=== PATIENT | male | born 1985 | race Caucasian/White ===

== ENCOUNTER → 2016-12-14 | Outpatient (CLI) | payer OTHER ==
[2016-12-14 11:40] LABS: BASO % 0.2 % (0.0-1.0); EOS # 0.1 K/mm3 (0.0-0.50); LARGE UNSTAINED CELL # 0.2 K/mm3 (0.0-0.4); LARGE UNSTAINED CELL % 2.2 % (0.0-4.0); LYMPH # 2.3 K/mm3 (1.5-6.5); LYMPH % 27.6 % (24.0-44.0); MEAN CORPUSCULAR HEMOGLOBIN 32.2 pg (27.0-33.0); MEAN CORPUSCULAR HGB CONC 34.1 g/dl (32.0-36.5); MEAN CORPUSCULAR VOLUME 94.7 fl (80.0-96.0); MONO # 0.5 K/mm3 (0.0-0.8); NEUTROPHILS # 4.8 K/mm3 (1.8-7.7); NEUTROPHILS % 62.9 % (36.0-66.0); PLATELET COUNT, AUTOMATED 244 k/mm3 (150-450); WHITE BLOOD COUNT 7.6 K/mm3 (4.0-10.0)
[2016-12-14 12:20] LABS: ALBUMIN 4.1 GM/DL (3.2-5.2); ALBUMIN/GLOBULIN RATIO 1.11 (1.00-1.93); ALKALINE PHOSPHATASE 60 U/L (45-117); ALT/SGPT 33 U/L (12-78); ANION GAP 4 MEQ/L (8-16); AST/SGOT 16 U/L (15-37); BILIRUBIN,TOTAL 0.8 MG/DL (0.2-1.0); BLOOD UREA NITROGEN 15 MG/DL (7-18); CALCIUM LEVEL 9.4 MG/DL (8.5-10.1); CARBON DIOXIDE LEVEL 33 MEQ/L (21-32); CHLORIDE LEVEL 102 MEQ/L (98-107); CHOLESTEROL LEVEL 237 MG/DL (<200); CREATININE FOR GFR 0.92 MG/DL (0.70-1.30); GLOMERULAR FILTRATION RATE > 60.0 (>60); GLUCOSE, FASTING 103 MG/DL (70-105); POTASSIUM SERUM 4.6 MEQ/L (3.5-5.1); SODIUM LEVEL 139 MEQ/L (136-145); TOTAL PROTEIN 7.8 GM/DL (6.4-8.2); TRIGLYCERIDES LEVEL 132 MG/DL (<150)
== END ==
LOC: M LAB 10:55
PROVIDERS: ATTEND Nurse Practitioner Family
DX: Z00.00 Encounter for general adult medical examination without abnormal findings (principal); Z13.220 Encounter for screening for lipoid disorders

== ENCOUNTER 2017-07-17 13:51 | Emergency (ER) | payer OTHER ==
[~2017-07-17] VITALS: Ht 175.3 cm; Wt 65.9 kg
[2017-07-17] MEDS ORDERED: AZIT500T2 PO (13:57)
[2017-07-17] MEDS ORDERED: valACYclovir HCL 500 MG TAB PO ONE (15:30)
[2017-07-17] MEDS ORDERED: VALT1TAB PO (15:39)
[2017-07-17] MEDS ORDERED: AMOX500C PO (15:47)
[2017-07-17 16:07] VITALS: BP 144/82
[2017-07-22 00:06] LABS: HSV TYPE I IgM AB <1:10 titer (<1:10); HSV TYPE II IgM ABY 1:10 titer (<1:10)
== END 2017-07-17 16:08 | disposition home or self-care (01) ==
LOC: M ED 13:51
DX: Z20.2 Contact with and (suspected) exposure to infections with a predominantly sexual mode of transmission (principal); Z72.0 Tobacco use

== ENCOUNTER → 2017-08-10 | Outpatient (REF) | payer OTHER ==
[2017-08-12 12:08] LABS: HIV 1&2 SCREEN CENTAUR NEGATIVE (NEGATIVE)
== END ==
LOC: M SFHCPLAZ 15:22
DX: Z72.51 High risk heterosexual behavior (principal)
CPT/HCPCS: 87389

== ENCOUNTER 2019-06-01 19:36 | Emergency (ER) | payer OTHER ==
[~2019-06-01] VITALS: Ht 172.7 cm; Wt 72.7 kg
[~2019-06-01 19:36] MED LIST: AMOX500C PO; AZIT500T5 PO; VALT1TAB PO
[2019-06-01 20:27] LABS: BASO % 0.4 % (0.0-1.0); EOS # 0.1 10^3/uL (0.0-0.5); EOS % 0.8 % (0.0-3.0); HEMATOCRIT 46.6 % (42.0-52.0); HEMOGLOBIN 15.8 g/dl (13.5-17.5); LYMPH # 3.4 10^3/uL (1.5-5.0); LYMPH % 37.4 % (24.0-44.0); MEAN CORPUSCULAR HGB CONC 33.9 g/dl (32.0-36.5); MEAN CORPUSCULAR VOLUME 97.3 fl (80.0-96.0); MONO # 0.7 10^3/uL (0.0-0.8); NEUTROPHILS # 4.8 10^3/uL (1.5-8.5); NEUTROPHILS % 53.1 % (36.0-66.0); PLATELET COUNT, AUTOMATED 267 10^3/uL (150-450); RED BLOOD COUNT 4.79 10^6/uL (4.30-6.10)
[2019-06-01 20:53] LABS: ALBUMIN 4.4 GM/DL (3.2-5.2); ALT/SGPT 32 U/L (12-78); BILIRUBIN,DIRECT < 0.1 MG/DL (0.0-0.2); BILIRUBIN,TOTAL 0.3 MG/DL (0.2-1.0); TOTAL PROTEIN 8.4 GM/DL (6.4-8.2)
[2019-06-01 21:12] LABS: HEPATITIS B SURFACE ANTIGEN NEGATIVE (NEGATIVE)
[2019-06-01 21:15] VITALS: BP 139/81
[2019-06-01 21:41] LABS: HEPATITIS C VIRUS ABY INDEX 0.1 INDEX (<0.8)
[2019-06-04 10:49] LABS: HEPATITIS B CORE ANTIBODY IGM NEGATIVE (NEGATIVE)
[2019-06-04 10:50] LABS: HEPATITIS A ANTIBODY IGM NEGATIVE (NEGATIVE)
== END 2019-06-01 21:37 | disposition home or self-care (01) ==
LOC: M ED 19:36
DX: Z20.5 Contact with and (suspected) exposure to viral hepatitis (principal); F17.210 Nicotine dependence, cigarettes, uncomplicated

== ENCOUNTER 2020-01-09 16:18 | Inpatient (IN) | payer OTHER ==
[~2020-01-09] VITALS: Ht 170.2 cm; Wt 70.5 kg
[2020-01-09 18:03] LABS: HEMATOCRIT 46.5 % (42.0-52.0); HEMOGLOBIN 16.3 g/dl (13.5-17.5); MEAN CORPUSCULAR HEMOGLOBIN 33.1 pg (27.0-33.0); MEAN CORPUSCULAR HGB CONC 35.1 g/dl (32.0-36.5); MEAN CORPUSCULAR VOLUME 94.3 fl (80.0-96.0); PLATELET COUNT, AUTOMATED 285 10^3/uL (150-450); RED BLOOD COUNT 4.93 10^6/uL (4.30-6.10); WHITE BLOOD COUNT 12.9 10^3/uL (4.0-10.0)
[2020-01-09 18:35] LABS: AMPHETAMINES LEVEL URINE NEGATIVE (NEGATIVE); BARBITURATES URINE NEGATIVE (NEGATIVE); BENZODIAZEPINES URINE NEGATIVE (NEGATIVE); CANNABINOIDS URINE POSITIVE (NEGATIVE); COCAINE METABOLITE URINE NEGATIVE (NEGATIVE); METHADONE URINE NEGATIVE (NEGATIVE); OPIATES URINE NEGATIVE (NEGATIVE); PHENCYCLIDINE URINE NEGATIVE (NEGATIVE)
[2020-01-09 18:36] LABS: ACETAMINOPHEN LEVEL < 2.0 UG/ML (10.0-30.0); ALBUMIN 4.5 GM/DL (3.2-5.2); ALT/SGPT 31 U/L (12-78); BILIRUBIN,DIRECT 0.1 MG/DL (0.0-0.2); BILIRUBIN,TOTAL 0.5 MG/DL (0.2-1.0); BLOOD UREA NITROGEN 10 MG/DL (7-18); CALCIUM LEVEL 9.7 MG/DL (8.5-10.1); CARBON DIOXIDE LEVEL 29 MEQ/L (21-32); CHLORIDE LEVEL 103 MEQ/L (98-107); CREATININE FOR GFR 1.04 MG/DL (0.70-1.30); ETHYL ALCOHOL (ETHANOL) < 0.003 % (0.000-0.010); GLOMERULAR FILTRATION RATE > 60.0 (>60); GLUCOSE, FASTING 100 MG/DL (70-100); POTASSIUM SERUM 4.5 MEQ/L (3.5-5.1); SODIUM LEVEL 139 MEQ/L (136-145); TOTAL PROTEIN 8.5 GM/DL (6.4-8.2)
[2020-01-09] MEDS ORDERED: MAALOX 30 ML SUSP *UDC PO PRN (21:30)
[2020-01-09] MEDS ORDERED: ACETAMINOPHEN TAB 650MG DOSE (2X325MG) PO PRN (21:30)
[2020-01-09] MEDS ORDERED: OLANZapine ORAL DISINTEGRATING TAB 5MG PO PRN (21:30)
[2020-01-09] MEDS ORDERED: MOM 30ML SUSPENSION UDC PO PRN (21:30)
[2020-01-09] MEDS: PALIPERIDONE 3 MG ER TAB (INVEGA) PO SCH (22:15)
[2020-01-09] MEDS: NICOTINE 21MG/24HR 1 EA TRANSDERMAL TD SCH (22:15)
[2020-01-09 23:56] VITALS: BP 122/69
[2020-01-10 06:29] VITALS: BP 154/67
[2020-01-10] MEDS: NICOTINE 21MG/24HR 1 EA TRANSDERMAL TD SCH (09:00)
[2020-01-10] MEDS: PALIPERIDONE 3 MG ER TAB (INVEGA) PO SCH ×2 (09:00→21:13)
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
[2020-01-10] MEDS ORDERED: LORazepam 1 MG TAB PO ONE (20:30)
[2020-01-11] MEDS: NICOTINE 21MG/24HR 1 EA TRANSDERMAL TD SCH (09:00)
[2020-01-11] MEDS: PALIPERIDONE 3 MG ER TAB (INVEGA) PO SCH (09:34)
--- NOTE | 2020-01-11 10:06 | MHIPNPDOC ---
[facility] Progress Note Progress Note DOS 01/11/2020 Patient met with today with nurse present for telehealth evaluation due to COVID Crisis he is met with in his room at a safe distance with nurse wearing PPE Events Overnight: no significant events Group Attendance:: none Symptom changes (psych ROS): Affective: reports still feeling down about previous trauma Psychotic: still appears to be quite paranoid talking about "conspiracy theories" Anxiety: reports anxiety from reported trauma Staff Report: staff report patient is generally amenable, and has been taking medications Medical ROS: [Gen: -fevers, chills] [Cardio: -chest pain, palpations] [[place]: -SOB, cough] [GI: -N,V,D,C] [Neuro: -tremors, msk stiffness] [Derm: -rash] MSE: Vitals: Below General: fair hygiene Speech: rapid Thought processes: circumstantial Thought content: psychotic delusions Abstract reasoning, and computation: impaired Description of associations: imparied Description of abnormal or psychotic thoughts:Unclear, appears to have psychotic processes going on. Judgment: poor Insight: poor Orientation: Alert and orientated 3 Recent and remote memory: Intact Attention span and concentration: mildly impaired Fund of knowledge: unable to determine Mood: "great" Affect: appears euthymic from a distance Vital Signs Vital Signs Date Time Temp Pulse Resp B/P (MAP) Pulse Ox O2 Delivery O2 Flow Rate FiO2 01/10/20 06:29 99.6 78 18 154/67 (96) 98 Room Air Current Medications Current Medications Medications (Trade) Dose Ordered Sig/Bita Route PRN Reason Start Time Stop Time Status Last Admin Dose Admin Acetaminophen (Tylenol Tab) 650 mg Q6HP PRN PO HEADACHE or DISCOMFORT 01/09/20 21:30 Al Hydrox/Mg Hydrox/Simethicone (Mylanta) 30 ml Q4HP PRN PO HEARTBURN/INDIGESTION 01/09/20 21:30 Home Med (Med Rec Complete!) ASDIRECTED XX 01/09/20 19:15 01/09/20 19:07 DC Magnesium Hydroxide (Milk Of Magnesia) 30 ml DAILYPRN PRN PO CONSTIPATION 01/09/20 21:30 Mirtazapine (Remeron) 15 mg QHS PRN PO SLEEP 01/09/20 21:30 Nicotine (Nicoderm Cq 21mg) 1 patch DAILY TD 01/09/20 09:00 Olanzapine (ZyPREXA ZYDIS) 5 mg Q6HP PRN PO ANXIETY/AGITATION 01/09/20 21:30 01/11/20 04:41 Paliperidone (Invega) 3 mg BID PO 01/09/20 21:00 01/11/20 09:34 Allergies Coded Allergies: No Known Allergies (Unverified , 07/17/17) Problems (1) Bipolar affective disorder, current episode manic with psychotic symptoms Status: Acute Response to Treatment: Improving Discussed With: Nurse Problem Specific Plan: Monitor Clinically Problem Text: will discontinue paliperidone, as it's highly unlikely that insurance companies recover this as he doesn't appear to have tried any other medications. Will attempt to use Zyprexa 5 mg BID has evidence supports its use in suppressing psychotic phenomenon effectively in the short term. Plan / VTE VTE Prophylaxis Ordered?: No Plan Diet: Continue Current Activity: Continue Current Anticipated Discharge: Home (no discharge date as of yet) JOHN RANDOLPH DO Jan 11, 2020 10:06
[2020-01-11] MEDS: OLANZapine ORAL DISINTEGRATING TAB 5MG PO SCH (21:36)
[2020-01-11] MEDS: MIRTAZAPINE 15 MG TAB PO PRN (21:36)
[2020-01-12] MEDS: OLANZapine ORAL DISINTEGRATING TAB 5MG PO SCH ×2 (08:29→21:56)
[2020-01-12] MEDS: NICOTINE 21MG/24HR 1 EA TRANSDERMAL TD SCH (08:33)
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
[2020-01-12 16:04] VITALS: BP 127/76
[2020-01-12] MEDS: MIRTAZAPINE 15 MG TAB PO PRN (21:59)
[2020-01-13] MEDS: OLANZapine ORAL DISINTEGRATING TAB 5MG PO SCH ×2 (08:24→21:25)
[2020-01-13] MEDS: NICOTINE 21MG/24HR 1 EA TRANSDERMAL TD SCH (08:33)
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
[2020-01-13] MEDS: LITHIUM CARBONATE 150 MG CAP PO SCH ×2 (12:07→21:25)
[2020-01-13 15:56] VITALS: BP 153/83
[2020-01-13] MEDS: MIRTAZAPINE 15 MG TAB PO PRN (21:25)
[2020-01-14] MEDS: NICOTINE 21MG/24HR 1 EA TRANSDERMAL TD SCH (09:00)
[2020-01-14] MEDS: OLANZapine ORAL DISINTEGRATING TAB 5MG PO SCH (09:10)
[2020-01-14] MEDS: LITHIUM CARBONATE 150 MG CAP PO SCH (09:10)
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
[2020-01-14] MEDS ORDERED: LITH150C PO (10:18)
[2020-01-14] MEDS ORDERED: NICO21PAT TD (10:18)
[2020-01-14] MEDS ORDERED: OLAN5TAB PO (10:18)
== END 2020-01-14 13:45 | disposition home or self-care (01) | DRG 753 ==
LOC: M ED 16:18 → M ED INP 21:25 → M PSY 23:55
PROVIDERS: ADMIT Psychiatry & Neurology Psychiatry; ATTEND Psychiatry & Neurology Addiction Medicine
DX: F31.2 Bipolar disorder, current episode manic severe with psychotic features (principal); F10.10 Alcohol abuse, uncomplicated; Z20.89 Contact with and (suspected) exposure to other communicable diseases; F17.200 Nicotine dependence, unspecified, uncomplicated; F12.90 Cannabis use, unspecified, uncomplicated

== ENCOUNTER → 2020-01-21 | Outpatient (CLI) | payer OTHER ==
[~2020-01-21] MED LIST changes: +LITH150C PO; +NICO21PAT TD; +OLAN5TAB PO
== END ==
LOC: M OUTALCOH 08:04
PROVIDERS: ATTEND Psychiatry & Neurology Addiction Medicine
DX: Z13.39 Encounter for screening examination for other mental health and behavioral disorders (principal); F10.20 Alcohol dependence, uncomplicated

== ENCOUNTER 2020-01-23 04:18 | Inpatient (IN) | payer OTHER ==
[~2020-01-23] VITALS: Ht 170.2 cm; Wt 69.0 kg
[2020-01-23] MEDS ORDERED: MAALOX 30 ML SUSP *UDC PO PRN (06:45)
[2020-01-23] MEDS ORDERED: OLANZapine ORAL DISINTEGRATING TAB 5MG PO PRN (06:45)
[2020-01-23] MEDS ORDERED: ACETAMINOPHEN TAB 650MG DOSE (2X325MG) PO PRN (06:45)
[2020-01-23] MEDS ORDERED: MOM 30ML SUSPENSION UDC PO PRN (06:45)
[2020-01-23 11:15] VITALS: BP 142/90
[2020-01-23] MEDS: LITHIUM CARBONATE 150 MG CAP PO SCH ×2 (11:48→20:13)
--- NOTE | 2020-01-23 13:16 | HPEPDOC ---
[facility] Medical History & Physical Date of Admission Jan 23, 2020 Date of Service: Jan 23, 2020 History and Physical Chief complaint: Suicidal ideation History of present illness: This is the 34-year-old male with no significant medical history, comes to the psychiatric unit and we have been consulted for medical reasons. Mother had informed that the patient was having suicidal ideation. States that he has a lot of stressors and his family is trying to harm him and that is the reason he ran away.. His thoughts are tangential and he is not been able to make a good eye contact. He currently has been admitted to the psychiatric facility and the management will be as per them. He denies any shortness of breath, any chest pain, any headache. He states that he does not have any intentions of hurting himself or anybody else at this point of time. Family history. Hypertension. Social history.Denies any drug abuse. Denies any recreational drug use. Past medical history none Past surgical history none as per patient Review of systems. Pertinent positive findings as per HPI and is negative PHYSICAL EXAMINATION: General: The patient is awake, alert, oriented x3, sitting up in the bed in no apparent distress. Head and Neck Exam: Extraocular muscles intact. Pupils equally round and reactive to light. Mucous membranes are moist. Neck is supple. There is no jugular venous distention (JVD). Cardiovascular: S1 and S2, regular rate. No real edema Respiratory: Clear auscultation Abdomen: Soft. Positive bowel sounds. Nontender. No organomegaly. Genitourinary: Deferred Musculoskeletal: no cyanosis was noted. Central Nervous System (GRADUATE ADVISOR): No focal deficit. Power is 5/5 in all extremities. Radiology reviewed Assessment and plan This is a 34-year-old male was been admitted to the psychiatric facility for suicidal ideation. And we have been consulted for medical management. 1. Suicide ideation. Management is per psychiatry. 2. Paranoia: Management as per psychiatric Diet as per psychiatric Thank so much for consulting us on this patient We will sign off. Please reconsult if needed Vital Signs Vital Signs Date Time Temp Pulse Resp B/P (MAP) Pulse Ox O2 Delivery O2 Flow Rate FiO2 01/23/20 08:48 98.4 68 18 140/76 (97) 100 Room Air Laboratory Data Microbiology Microbiology 01/23/20 Respiratory Virus Panel (PCR) ([place]) - Final, Complete Home Medications No Active Prescriptions or Reported Meds Allergies Coded Allergies: No Known Allergies (Unverified , 07/17/17) A-FIB/CHADSVASC A-FIB History Current/History of A-Fib/PAF?: No Current PO Anticoag Therapy: No RENÉE PERRY MD Jan 23, 2020 13:16
[2020-01-23 20:00] VITALS: BP 130/72
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
[2020-01-24 06:14] VITALS: BP 141/79
[2020-01-24] MEDS: LITHIUM CARBONATE 150 MG CAP PO SCH (09:18)
--- NOTE | 2020-01-24 09:24 | MHIPNPDOC ---
[facility] Progress Note Progress Note DATE OF SERVICE: 01/24/20 Skinny Heard presents today for concerns regarding his thoughts from yesterday. He is doing better today. He was having some paranoid thoughts yesterday. His current medications are causing blood in stool . He blames his diet and lack of nutrients in his diet for the blood in stool as well. Objective Appearance: Well nourished. Fair hygiene. Well groomed. Mood: More cooperative today. Less aggression. Euthymic. Generally good. Appropriately reactive. Thought Form: Linear and goal directed. Thought Content: No evidence of aggressive or homicidal ideation. Associations do appear somewhat loosened. No evidence of suicidal ideation. Insight: Judgment insight is improving but still limited. Assessment F31.63 Bipolar disorder, current episode mixed, severe, without psychotic features Plan The patient is less agitated today. However, continues to report problems with blood in stool. Will do an occult blood test to make sure theres no major issues. The patient reports some difficulty with paranoia, although he continually says hes fine. Nursing staff reports that he is quite distorted. He will start abilify 5 mg nightly. Tonight he will discontinue [place] and Zyprexa. Vital Signs Vital Signs Date Time Temp Pulse Resp B/P (MAP) Pulse Ox O2 Delivery O2 Flow Rate FiO2 01/24/20 06:14 97.8 71 12 141/79 (99) Room Air 01/23/20 11:15 99 Current Medications Current Medications Medications (Trade) Dose Ordered Sig/Bita Route PRN Reason Start Time Stop Time Status Last Admin Dose Admin Acetaminophen (Tylenol Tab) 650 mg Q6HP PRN PO HEADACHE or DISCOMFORT 01/23/20 06:45 Al Hydrox/Mg Hydrox/Simethicone (Mylanta) 30 ml Q4HP PRN PO HEARTBURN/INDIGESTION 01/23/20 06:45 Home Med (Med Rec Complete!) ASDIRECTED XX 01/23/20 06:45 01/23/20 06:46 DC [place] Carbonate ([place] Carbonate) 150 mg BID PO 01/23/20 09:00 01/24/20 09:18 Magnesium Hydroxide (Milk Of Magnesia) 30 ml DAILYPRN PRN PO CONSTIPATION 01/23/20 06:45 Olanzapine (ZyPREXA ZYDIS) 5 mg Q4HP PRN PO anxiety/agitation 01/23/20 06:45 Trazodone HCl (Desyrel) 50 mg QHSP PRN PO INSOMNIA 01/23/20 06:45 Allergies Coded Allergies: No Known Allergies (Unverified , 07/17/17) JOHN RANDOLPH DO Jan 24, 2020 09:24
[2020-01-24 17:19] VITALS: BP 150/88
[2020-01-25 06:53] VITALS: BP 139/93
--- NOTE | 2020-01-25 10:02 | MHIPNPDOC ---
[facility] Progress Note Progress Note The patient was seen on 01/25/20. HPI: Patient audio poor sometimes throughout the recording. Félix presents today for a follow up. He notes that he is feeling a lot better on the Abilify. He notes having side effects from the Abilify now and then. He notes that his mental state, sleep and body have gotten better. Patient denies having any suicidal or homicidal thoughts. Objective Appearance: Fair hygiene. Well nourished. Behavior: Cooperative with good eye contact. Pleasant. Generally doesnt have much engagement other than bizarre thoughts that are irrate. Thought Form: Nonlinear. Tangential. Thought Content: No evidence of aggressive or homicidal ideation. No evidence of suicidal ideation. No evidence of delusions. No thoughts of self harm. Perception: Psychotic. Assessment Bipolar disorder type 1, most recent episode, mixed severe Plan He does appear to be making some very mild progress. However, he will likely need to be on an injectable as he has fairly severe bipolar disorder. He is still quite distorted and generally unable to engage with any meaningful di scussion. Increase dose of Abilify to 10mg nightly Vital Signs Vital Signs Date Time Temp Pulse Resp B/P (MAP) Pulse Ox O2 Delivery O2 Flow Rate FiO2 01/25/20 06:53 98.5 87 16 139/93 (108) 99 Room Air Current Medications Current Medications Medications (Trade) Dose Ordered Sig/Bita Route PRN Reason Start Time Stop Time Status Last Admin Dose Admin Acetaminophen (Tylenol Tab) 650 mg Q6HP PRN PO HEADACHE or DISCOMFORT 01/23/20 06:45 Al Hydrox/Mg Hydrox/Simethicone (Mylanta) 30 ml Q4HP PRN PO HEARTBURN/INDIGESTION 01/23/20 06:45 Aripiprazole (AbiLIFY) 5 mg QHS PO 01/24/20 21:00 01/24/20 21:46 Home Med (Med Rec Complete!) ASDIRECTED XX 01/23/20 06:45 01/23/20 06:46 DC [place] Carbonate ([place] Carbonate) 150 mg BID PO 01/23/20 09:00 01/24/20 10:13 DC 01/24/20 09:18 Magnesium Hydroxide (Milk Of Magnesia) 30 ml DAILYPRN PRN PO CONSTIPATION 01/23/20 06:45 Olanzapine (ZyPREXA ZYDIS) 5 mg Q4HP PRN PO anxiety/agitation 01/23/20 06:45 Trazodone HCl (Desyrel) 50 mg QHSP PRN PO INSOMNIA 01/23/20 06:45 Allergies Coded Allergies: No Known Allergies (Unverified , 07/17/17) JOHN RANDOLPH DO Jan 25, 2020 10:02
[2020-01-25 15:43] VITALS: BP 154/86
[2020-01-25] MEDS: ARIPiprazole 10 MG TAB PO SCH (20:54)
[2020-01-26 06:25] VITALS: BP 145/78
[2020-01-26 15:31] VITALS: BP 135/78
[2020-01-26] MEDS: ARIPiprazole 10 MG TAB PO SCH (21:58)
[2020-01-27 06:35] VITALS: BP 142/91
--- NOTE | 2020-01-27 09:24 | MHIPN ---
DATE: 01/26/2020 This patient is seen via telepsychiatry due to the current Coronavirus crisis. The patient today states, "I'm doing better, I like the medication." He is referring to Helio that he is being treated with. It is difficult for him to elaborate in what way he is feeling better and he did say that before he was having a lot of anxiety and that his anxiety is better now. MENTAL STATUS EXAMINATION: This patient is alert and oriented times three. Eye contact is fair. Psychomotor activity is decreased. He appears guarded and very vague. There is no formal thought disorder. He says his mood is "better." His affect is flat. I suspect that he is still having significant delusions but he is guarded about that at this point. He is denying any suicidal or homicidal ideations today. Concentration is fair. Memory is grossly intact. Insight and judgment poor. DIAGNOSIS: Bipolar disorder mixed, episode severe, with possible psychotic symptoms. TREATMENT PLAN: At this point, we will continue him on the current medications. We will adjust the medications as indicated and continue to evaluate him for stabilization of his mood and thinking and resolution of suicidal thoughts.
[2020-01-27 15:56] VITALS: BP 120/73
[2020-01-27] MEDS: ARIPiprazole 10 MG TAB PO SCH (23:05)
[2020-01-28 06:44] VITALS: BP 130/80
--- NOTE | 2020-01-28 11:13 | MHIPN ---
DATE OF SERVICE: 01/27/2020 The patient is seen via telepsychiatry due to the current Coronavirus crisis. The patient today states "I'm feeling better and better every day and every minute that goes by." He continues to feel "The medications are balancing me." MENTAL STATUS EXAMINATION: This patient is alert and oriented times three. Eye contact is good. He does have some pressured speech and some mild flight of ideas. He says his mood is good. Affect is appropriate to mood. He is not psychotic or suicidal. I am not eliciting any psychotic symptoms today. Psychomotor activity is decreased. He appears guarded and very vague. There is no formal thought disorder. He says his mood is "better." His affect is flat. I suspect that he is still having significant delusions but he is guarded about that at this point. He is denying any suicidal or homicidal ideations today. Concentration is fair. Memory is grossly intact. Insight and judgment fair. DIAGNOSIS: Bipolar disorder, mixed episode, severe. TREATMENT PLAN: Will continue to monitor the patient for continued elevation and stabilization of his mood and continue resolution of suicidal ideation. NIKIA
[2020-01-28 16:42] VITALS: BP 140/86
[2020-01-28] MEDS: traZODone 50 MG TAB PO PRN (21:25)
[2020-01-28] MEDS: ARIPiprazole 15 MG TAB (AbiLIFY) PO SCH (21:25)
--- NOTE | 2020-01-28 22:56 | MHIPN ---
DATE: 01/28/2020 The patient is seen via telepsychiatry due to the current coronavirus crisis. The patient's fiance called the unit this morning to say that the patient is still delusional, that he told her that someone is trying to kill him on the unit, also that there is a nurse in the unit that looks just like his fiance's mom and that the person that the fiadelita thinks is her mother is really a surrogate. He told her he would go talk to the police and tell them that he has found her real mom. The patient today tells me that he was doing "great." He tells me that he is not depressed, that the medicine is working good, and when I discussed with him the above, he became very upset and angry, denying everything. MENTAL STATUS EXAM: This patient is alert and oriented times three. He is verbally spontaneous. He is angry. There is no formal thought disorder. His mood is great. Affect is flat. He remains acutely delusional with poor insight and judgment. Concentration is fair. Memory intact. DIAGNOSES: Bipolar disorder, mixed episode, severe, with psychotic symptoms. TREATMENT PLAN: At this point, the patient remains quite delusional with no insight. He is quite angry. I will increase his Abilify to 15 mg nightly. MTDD
[2020-01-29 06:22] VITALS: BP 154/88
[2020-01-29 16:37] VITALS: BP 134/81
[2020-01-29] MEDS: traZODone 50 MG TAB PO PRN (20:33)
[2020-01-29] MEDS: ARIPiprazole 15 MG TAB (AbiLIFY) PO SCH (20:33)
[2020-01-30 06:31] VITALS: BP 134/73
--- NOTE | 2020-01-30 09:24 | MHIPNPDOC ---
[facility] Progress Note Progress Note DATE OF SERVICE: 01/30/20 HPI: Félix presents today for concerns regarding his mental health. He has noticed that his mental state is much better on the medication. He states that he feels balanced and great. MEDICATIONS: He has increased his Abilify up to 15 mg . EXERCISE: For discharge, he has been planning on continuing his yoga. Objective Appearance: Well groomed. Well nourished. Behavior: Quite psychotic. Affect: Generally Eleted. Speech: Not pressured. Cognition: Grossly intact. Thought Form: Still distorted with delusional thinking. Thought process is tangential. Perception: Associations are loosened. Judgement: Poor. Insight: Poor. Assessment F31.64 Bipolar disorder, current episode mixed, severe, with psychotic features Plan The patient is a 34-year-old man with severe bipolar disorder. Presents for continued medication management. He will continue abilify 15 mg nightly, adding Depakote 250 mg BID for further mood stability, as he will likely need more medications in order to stabilize him. The potential for correction treatment needs to be explored as he is not making significant progress at this time, with unrealistic plans. Vital Signs Vital Signs Date Time Temp Pulse Resp B/P (MAP) Pulse Ox O2 Delivery O2 Flow Rate FiO2 01/30/20 06:31 97.5 87 18 134/73 (93) Room Air 01/28/20 06:44 99 Current Medications Current Medications Medications (Trade) Dose Ordered Sig/Bita Route PRN Reason Start Time Stop Time Status Last Admin Dose Admin Acetaminophen (Tylenol Tab) 650 mg Q6HP PRN PO HEADACHE or DISCOMFORT 01/23/20 06:45 Al Hydrox/Mg Hydrox/Simethicone (Mylanta) 30 ml Q4HP PRN PO HEARTBURN/INDIGESTION 01/23/20 06:45 Aripiprazole (AbiLIFY) 5 mg QHS PO 01/24/20 21:00 01/25/20 10:09 DC 01/24/20 21:46 Aripiprazole (AbiLIFY) 10 mg QHS PO 01/25/20 21:00 01/28/20 14:53 DC 01/27/20 23:05 Aripiprazole (AbiLIFY) 15 mg QHS PO 01/28/20 21:00 01/29/20 20:33 Home Med (Med Rec Complete!) ASDIRECTED XX 01/23/20 06:45 01/23/20 06:46 DC [place] Carbonate ([place] Carbonate) 150 mg BID PO 01/23/20 09:00 01/24/20 10:13 DC 01/24/20 09:18 Magnesium Hydroxide (Milk Of Magnesia) 30 ml DAILYPRN PRN PO CONSTIPATION 01/23/20 06:45 Olanzapine (ZyPREXA ZYDIS) 5 mg Q4HP PRN PO anxiety/agitation 01/23/20 06:45 Trazodone HCl (Desyrel) 50 mg QHSP PRN PO INSOMNIA 01/23/20 06:45 01/29/20 20:33 Allergies Coded Allergies: No Known Allergies (Unverified , 07/17/17) JOHN RANDOLPH DO Jan 30, 2020 09:24
[2020-01-30] MEDS: DIVALPROEX 250 MG TAB PO SCH ×2 (10:42→20:09)
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
[2020-01-30 16:30] VITALS: BP 138/72
[2020-01-30] MEDS: ARIPiprazole 15 MG TAB (AbiLIFY) PO SCH (20:08)
[2020-01-31 06:23] VITALS: BP 125/75
--- NOTE | 2020-01-31 09:48 | MHIPNPDOC ---
[facility] Progress Note Progress Note DATE OF SERVICE: 01/31/20 Félix presents today for a follow up. He noticed slight shakiness in his legs when he was doing yoga, which may be caused by medication side effects. He denies any suicidal thoughts, homicidal thoughts, and hallucinations. He became very defensive when asked about these thoughts.staff still report patient is quite distorted, aggressive and paranoid MEDICATIONS: Currently taking Depakote and notes that all prescribed medications have been effective. Objective Appearance: Well groomed. Well nourished. Behavior: Paranoid. Aggressive. Affect: Angry. Irritable. Speech: Pressured. Thought Content: No evidence of aggressive or homicidal ideation. No evidence of delusions. No evidence of suicidal ideation. No thoughts of self harm. Perception: Psychotic perceptions are prevalent. Assessment F31.64 Bipolar disorder, current episode mixed, severe, with psychotic features Plan Continue Depakote and Abilify at this time; will likely need to increase over the weekend and further treatment. He does report he would be fine going to court, however, he is current condition will likely lead to further retention. Vital Signs Vital Signs Date Time Temp Pulse Resp B/P (MAP) Pulse Ox O2 Delivery O2 Flow Rate FiO2 01/31/20 06:23 96.9 94 12 125/75 (92) Room Air 01/28/20 06:44 99 Current Medications Current Medications Medications (Trade) Dose Ordered Sig/Bita Route PRN Reason Start Time Stop Time Status Last Admin Dose Admin Acetaminophen (Tylenol Tab) 650 mg Q6HP PRN PO HEADACHE or DISCOMFORT 01/23/20 06:45 Al Hydrox/Mg Hydrox/Simethicone (Mylanta) 30 ml Q4HP PRN PO HEARTBURN/INDIGESTION 01/23/20 06:45 Aripiprazole (AbiLIFY) 5 mg QHS PO 01/24/20 21:00 01/25/20 10:09 DC 01/24/20 21:46 Aripiprazole (AbiLIFY) 10 mg QHS PO 01/25/20 21:00 01/28/20 14:53 DC 01/27/20 23:05 Aripiprazole (AbiLIFY) 15 mg QHS PO 01/28/20 21:00 01/30/20 20:08 Divalproex Sodium (Depakote) 250 mg BID PO 01/30/20 09:00 6/24/20 20:09 Home Med (Med Rec Complete!) ASDIRECTED XX 01/23/20 06:45 01/23/20 06:46 DC [place] Carbonate ([place] Carbonate) 150 mg BID PO 01/23/20 09:00 01/24/20 10:13 DC 01/24/20 09:18 Magnesium Hydroxide (Milk Of Magnesia) 30 ml DAILYPRN PRN PO CONSTIPATION 01/23/20 06:45 Olanzapine (ZyPREXA ZYDIS) 5 mg Q4HP PRN PO anxiety/agitation 01/23/20 06:45 Trazodone HCl (Desyrel) 50 mg QHSP PRN PO INSOMNIA 01/23/20 06:45 01/29/20 20:33 Allergies Coded Allergies: No Known Allergies (Unverified , 07/17/17) JOHN RANDOLPH DO Jan 31, 2020 09:48
[2020-01-31] MEDS: DIVALPROEX 250 MG TAB PO SCH (10:14)
[2020-01-31 17:35] VITALS: BP 138/82
[2020-01-31] MEDS: ARIPiprazole 15 MG TAB (AbiLIFY) PO SCH (21:14)
[2020-01-31] MEDS: traZODone 50 MG TAB PO PRN (21:14)
[2020-01-31] MEDS: DIVALPROEX 500 MG TAB PO SCH (21:16)
[2020-02-01 06:48] VITALS: BP 140/73
[2020-02-01] MEDS: DIVALPROEX 500 MG TAB PO SCH ×2 (09:02→20:19)
--- NOTE | 2020-02-01 09:23 | MHIPNPDOC ---
[facility] Progress Note Progress Note DATE OF SERVICE: 02/01/20 Félix presents today for a follow upPatient denies side effects from current medications.patient has been doing well per nursing notes and is becoming more amenable, unless paranoid. MEDICATIONS: Currently taking depakote and Abilify Objective Appearance: Well nourished. Well groomed. Behavior: Pleasant. Cooperative with good eye contact. Engaged. Affect: Appropriate to context. Full range. Mood: Appropriately reactive. Generally good. Euthymic. Speech: Normal rate. Normal volume. Motor: No gross motor abnormalities. Cognition: Alert, Attentive, and Oriented to person, place, time. Memory: No gross abnormalities of short or mcfp memory noted during i nterview. No formal testing. Thought Form: Linear and goal directed. Thought Content: No evidence of aggressive or homicidal ideation. No evidence of delusions. No evidence of suicidal ideation. No thoughts of self harm. Perception: No perceptual abnormalities noted. Judgement: intact as evidenced by decision making in the recent past. Insight: good insight into symptoms and treatment options. Assessment F31.70 Bipolar disorder, currently in remission, most recent episode unspecified Plan He is amenable and much more friendly. Review of notes and staff report he is doing quite well. We will relay this to the covering provider. If he has a good weekend, he may be discharged on Tuesday. Continue on depakote 500 mg. If he could have a shot of Abilify 400 mg, it would hopefully produce a stronger response and keep him stable longer. Order labs: liver function, depakote level, hemoglobin A1C, lipid panel Vital Signs Vital Signs Date Time Temp Pulse Resp B/P (MAP) Pulse Ox O2 Delivery O2 Flow Rate FiO2 02/01/20 06:48 97.9 95 16 140/73 (95) 100 Room Air Current Medications Current Medications Medications (Trade) Dose Ordered Sig/Bita Route PRN Reason Start Time Stop Time Status Last Admin Dose Admin Acetaminophen (Tylenol Tab) 650 mg Q6HP PRN PO HEADACHE or DISCOMFORT 01/23/20 06:45 Al Hydrox/Mg Hydrox/Simethicone (Mylanta) 30 ml Q4HP PRN PO HEARTBURN/INDIGESTION 01/23/20 06:45 Aripiprazole (AbiLIFY) 5 mg QHS PO 01/24/20 21:00 01/25/20 10:09 DC 01/24/20 21:46 Aripiprazole (AbiLIFY) 10 mg QHS PO 01/25/20 21:00 01/28/20 14:53 DC 01/27/20 23:05 Aripiprazole (AbiLIFY) 15 mg QHS PO 01/28/20 21:00 01/31/20 21:14 Divalproex Sodium (Depakote) 250 mg BID PO 01/30/20 09:00 01/31/20 10:32 DC 01/31/20 10:14 Divalproex Sodium (Depakote) 500 mg BID PO 01/31/20 21:00 02/01/20 09:02 Home Med (Med Rec Complete!) ASDIRECTED XX 01/23/20 06:45 01/23/20 06:46 DC [place] Carbonate ([place] Carbonate) 150 mg BID PO 01/23/20 09:00 01/24/20 10:13 DC 01/24/20 09:18 Magnesium Hydroxide (Milk Of Magnesia) 30 ml DAILYPRN PRN PO CONSTIPATION 01/23/20 06:45 Olanzapine (ZyPREXA ZYDIS) 5 mg Q4HP PRN PO anxiety/agitation 01/23/20 06:45 Trazodone HCl (Desyrel) 50 mg QHSP PRN PO INSOMNIA 01/23/20 06:45 01/31/20 21:14 Allergies Coded Allergies: No Known Allergies (Unverified , 07/17/17) JOHN RANDOLPH DO Feb 01, 2020 09:23
[2020-02-01 12:46] LABS: ALBUMIN 4.2 GM/DL (3.2-5.2); ALT/SGPT 50 U/L (12-78); BILIRUBIN,DIRECT < 0.1 MG/DL (0.0-0.2); BILIRUBIN,TOTAL 0.3 MG/DL (0.2-1.0); CHOLESTEROL LEVEL 231 MG/DL (<200); CHOLESTEROL RISK RATIO 5.634 (<5); HDL CHOLESTEROL 41 MG/DL (>40); LDL CHOLESTEROL 141 MG/DL (<100); NON-HDL-C 190 MG/DL; TOTAL PROTEIN 8.1 GM/DL (6.4-8.2); TRIGLYCERIDES LEVEL 244 MG/DL (<150); VALPROIC ACID (DEPAKOTE) 50.3 UG/ML (50.0-100.0)
[2020-02-01 13:56] LABS: HEMOGLOBIN A1c 5.4 %
[2020-02-01 16:06] VITALS: BP 140/79
[2020-02-01] MEDS: ARIPiprazole 15 MG TAB (AbiLIFY) PO SCH (20:18)
[2020-02-01] MEDS: traZODone 50 MG TAB PO PRN (20:18)
[2020-02-02 06:22] VITALS: BP 126/82
[2020-02-02] MEDS: DIVALPROEX 500 MG TAB PO SCH ×2 (08:04→21:43)
[2020-02-02 16:57] VITALS: BP 136/80
[2020-02-02] MEDS: ARIPiprazole 15 MG TAB (AbiLIFY) PO SCH (21:43)
[2020-02-03 06:26] VITALS: BP 148/66
[2020-02-03] MEDS: DIVALPROEX 500 MG TAB PO SCH ×2 (08:13→20:12)
[2020-02-03 16:21] VITALS: BP 132/78
[2020-02-03] MEDS: ARIPiprazole 15 MG TAB (AbiLIFY) PO SCH (20:12)
[2020-02-03] MEDS: traZODone 50 MG TAB PO PRN (20:12)
[2020-02-04 06:16] VITALS: BP 147/82
[2020-02-04] MEDS: DIVALPROEX 500 MG TAB PO SCH (08:27)
[2020-02-04] MEDS ORDERED: ARIPiprazole MONOHYDRATE 400 MG INJ (ABILIFY) IM ONE (16:00)
[2020-02-04 16:05] VITALS: BP 140/64
[2020-02-04] MEDS ORDERED: ABIL400I IM (19:42)
[2020-02-04] MEDS ORDERED: DEPA1TAB3 PO (19:42)
[2020-02-04] MEDS ORDERED: ABIL1TAB12 PO (19:42)
--- NOTE | 2020-02-04 19:52 | MHDSPDOC ---
[facility] Discharge Summary Discharge Summary DATE OF ADMISSION: Jan 23, 2020 at 06:39 DATE OF DISCHARGE: 2019 DISCHARGE DIAGNOSES: 1. .Bipolar disorder with psychotic features 2. . REASON FOR ADMISSION: Patient became acutely psychotic not being able to sleep or function and was unable to maintain himself in the community CONSULTANTS INVOLVED: None TREATMENT AND PROGRESS ON THE UNIT : .Patient Had a positive course in the hospital although stayed on the inpatient unit for approximately 12 days--responded well to a combination of Depakote and Abilify--cooperated with meds--was discharged on long acting injectable Abilify 400 mg which he received today on day of discharge--is also discharged on Depakote 500 mg twice daily with a therapeutic blood level--it was recommended that he he continue to take oral Abilify for a period of time after this hospitalization at a dose of 5 mg at night in addition to the long-acting Abilify injection No complications to his inpatient stay DISCHARGE ASSESSMENT: Patient felt to have genuine bipolar disorder with psychotic features on presentation which resolved during the hospitalization MENTAL STATUS EXAMINATION ON DISCHARGE: MENTAL STATUS EXAM Level of consciousness--patient was alert and oriented to time place person Appearance-normal posture, normal dress, no prominent physical abnormalities, alert, cooperative Behavior--like to good, no psychomotor agitation or retardation, no abnormal movements, no tremor Speech--normal rate and rhythm--normal volume Mood--euthymic Affect--normal range and consistent with mood--stable Thought processes--logical and linear , goal directed and coherent--no thought blocking or flight of ideas, no loose associations, no tangential thinking, no word salad, no thought blocking, no circumstantiality Thought content--no ideas of reference no auditory or visual hallucinations, no delusional thinking, no thoughts of derealization or depersonalization, no obse ssive thinking, no expressed phobias, Cognition--patient was alert and able to focus-sustained appropriate mental attention-memory immediate and short-term memory intact-abstract thinking present, Insight---fair Judgment or the ability to anticipate consequences of behavior intact Patient denied any suicidal ideation or impulses Patient denied any homicidal impulses or ideation MEDICATIONS ON DISCHARGE:Abilify long-acting injection 400 mg every 4 weeks--patient received this injection today on February 03 Patient directed to take Abilify 5 mg at bedtime orally for a short period of time subsequent to the hospitalization which we will been monitored and adjusted per the outpatient provider Patient will continue on Depakote 500 mg twice daily PLAN/FOLLOWUP ARRANGEMENTS: .Patient referred to outpatient services at [facility] The amount of time spent in the coordination of care for this patient was approximately 45 minutes Vital Signs/I&Os Vital Signs Date Time Temp Pulse Resp B/P (MAP) Pulse Ox O2 Delivery O2 Flow Rate FiO2 02/04/20 16:05 98.1 103 16 140/64 (89) 02/04/20 06:16 98 Room Air Laboratory Data Microbiology Microbiology 01/25/20 Stool Occult Blood ([place]) - Final, Complete Medications Scheduled Aripiprazole (Abilify) 15 Mg Tablet, 5 MG PO QHS for bipolar for 30 Days, #30 Aripiprazole Monohydrate (Abilify Maintena) 400 Mg Suser.vial, 400 MG IM Q30D for bipolar for 30 Days, #1 Divalproex Sodium (Depakote) 500 Mg Tablet.dr, 500 MG PO BID for bipolar for 30 Days, #60 Allergies Coded Allergies: No Known Allergies (Unverified , 07/17/17) Sung Peng MD Feb 04, 2020 19:52
[2020-02-04] MEDS ORDERED: ARIPiprazole 15 MG TAB (AbiLIFY) PO SCH (21:00)
[2020-03-05] MEDS ORDERED: ARIPiprazole MONOHYDRATE 400 MG INJ (ABILIFY) IM SCH (09:00)
== END 2020-02-04 19:59 | disposition home or self-care (01) | DRG 753 ==
LOC: M ED 04:18 → M ED INP 06:39 → M PSY 11:25
PROVIDERS: ADMIT Psychiatry & Neurology Psychiatry; ATTEND Psychiatry & Neurology Addiction Medicine
DX: F31.5 Bipolar disorder, current episode depressed, severe, with psychotic features (principal); R45.851 Suicidal ideations

== ENCOUNTER 2020-03-05 11:00 | Outpatient (RCR) | payer OTHER ==
[~2020-03-05 11:00] MED LIST changes: +ABIL1TAB12 PO; +ABIL400I IM; +DEPA1TAB3 PO
== END 2020-03-07 ==
LOC: M OUTALCOH 11:00
PROVIDERS: ATTEND Psychiatry & Neurology Addiction Medicine
DX: F12.10 Cannabis abuse, uncomplicated (principal); F17.200 Nicotine dependence, unspecified, uncomplicated

== ENCOUNTER 2020-04-02 11:00 | Outpatient (RCR) | payer OTHER | END 2020-04-07 | LOC: M OUTALCOH 11:00 | PROVIDERS: ATTEND Psychiatry & Neurology Addiction Medicine | DX: F12.10 Cannabis abuse, uncomplicated (principal); F17.200 Nicotine dependence, unspecified, uncomplicated ==

== ENCOUNTER 2020-05-06 14:59 | Outpatient (RCR) | payer OTHER | END 2020-05-07 | LOC: M OUTALCOH 14:59 | PROVIDERS: ATTEND Psychiatry & Neurology Addiction Medicine | DX: F12.10 Cannabis abuse, uncomplicated (principal); F17.200 Nicotine dependence, unspecified, uncomplicated ==

== ENCOUNTER 2020-06-06 15:00 | Outpatient (RCR) | payer OTHER | END 2020-06-07 | LOC: M OUTALCOH 15:00 | PROVIDERS: ATTEND Psychiatry & Neurology Addiction Medicine | DX: F12.10 Cannabis abuse, uncomplicated (principal); F17.200 Nicotine dependence, unspecified, uncomplicated ==

== ENCOUNTER 2020-07-02 13:38 | Outpatient (RCR) | payer OTHER | END 2020-07-07 | LOC: M OUTALCOH 13:38 | PROVIDERS: ATTEND Psychiatry & Neurology Addiction Medicine | DX: F12.10 Cannabis abuse, uncomplicated (principal); F17.200 Nicotine dependence, unspecified, uncomplicated ==

== ENCOUNTER 2020-08-06 14:41 | Outpatient (RCR) | payer OTHER | END 2020-08-07 | LOC: M OUTALCOH 14:41 | PROVIDERS: ATTEND Psychiatry & Neurology Addiction Medicine | DX: F12.10 Cannabis abuse, uncomplicated (principal); F17.200 Nicotine dependence, unspecified, uncomplicated ==

== ENCOUNTER 2020-09-03 10:00 | Outpatient (RCR) | payer OTHER | END 2020-09-07 | LOC: M OUTALCOH 10:00 | PROVIDERS: ATTEND Psychiatry & Neurology Addiction Medicine | DX: F12.10 Cannabis abuse, uncomplicated (principal); F17.200 Nicotine dependence, unspecified, uncomplicated ==

== ENCOUNTER 2020-09-10 15:09 | Outpatient (RCR) | payer OTHER | END 2020-10-05 | LOC: M OUTALCOH 15:09 | PROVIDERS: ATTEND Psychiatry & Neurology Addiction Medicine | DX: F12.10 Cannabis abuse, uncomplicated (principal); F17.200 Nicotine dependence, unspecified, uncomplicated ==

== ENCOUNTER 2020-10-03 11:00 | Outpatient (RCR) | payer OTHER | END 2020-10-05 | LOC: M OUTALCOH 11:00 | PROVIDERS: ATTEND Psychiatry & Neurology Psychiatry | DX: F12.10 Cannabis abuse, uncomplicated (principal); F17.200 Nicotine dependence, unspecified, uncomplicated ==

== ENCOUNTER 2020-10-22 14:00 | Outpatient (RCR) | payer OTHER | END 2020-11-05 | LOC: M OUTALCOH 14:00 | PROVIDERS: ATTEND Psychiatry & Neurology Psychiatry | DX: F12.10 Cannabis abuse, uncomplicated (principal); F17.200 Nicotine dependence, unspecified, uncomplicated ==

== ENCOUNTER → 2020-11-07 | Outpatient (REF) | LOC: M LABSMTC 11:50 | PROVIDERS: ATTEND Pediatrics | DX: Z11.52 Encounter for screening for COVID-19 (principal) ==

== ENCOUNTER 2021-07-15 12:32 | Inpatient (IN) | payer OTHER ==
[~2021-07-15] VITALS: Ht 167.6 cm; Wt 67.0 kg
[~2021-07-15 12:32] MED LIST changes: +OLAN1TAB16 PO; -OLAN5TAB PO
[2021-07-15 13:17] LABS: HEMATOCRIT 47.8 % (42.0-52.0); HEMOGLOBIN 15.8 g/dl (13.5-17.5); MEAN CORPUSCULAR HEMOGLOBIN 30.9 pg (27.0-33.0); MEAN CORPUSCULAR HGB CONC 33.1 g/dl (32.0-36.5); MEAN CORPUSCULAR VOLUME 93.4 fl (80.0-96.0); PLATELET COUNT, AUTOMATED 305 10^3/uL (150-450); RED BLOOD COUNT 5.12 10^6/uL (4.30-6.10)
[2021-07-15 13:57] LABS: ACETAMINOPHEN LEVEL < 2.0 UG/ML (10.0-30.0); ALBUMIN 4.3 GM/DL (3.2-5.2); ALT/SGPT 33 U/L (12-78); BILIRUBIN,DIRECT 0.2 MG/DL (0.0-0.2); BILIRUBIN,TOTAL 0.5 MG/DL (0.2-1.0); BLOOD UREA NITROGEN 9 MG/DL (7-18); CARBON DIOXIDE LEVEL 31 MEQ/L (21-32); CHLORIDE LEVEL 103 MEQ/L (98-107); CREATININE FOR GFR 0.85 MG/DL (0.70-1.30); ETHYL ALCOHOL (ETHANOL) < 0.003 % (0.000-0.010); GLOMERULAR FILTRATION RATE > 60.0 (>60); GLUCOSE, FASTING 90 MG/DL (70-100); POTASSIUM SERUM 3.6 MEQ/L (3.5-5.1); SALICYLATE LEVEL 2.8 MG/DL (5.0-30.0); SODIUM LEVEL 140 MEQ/L (136-145); THYROID STIMULATING HORMONE 0.259 uIU/ML (0.358-3.740); TOTAL PROTEIN 8.1 GM/DL (6.4-8.2)
[2021-07-15 14:17] LABS: RSV AMPLIFICATION NEGATIVE (NEGATIVE)
[2021-07-15 14:56] LABS: AMPHETAMINES LEVEL URINE NEGATIVE (NEGATIVE); BARBITURATES URINE NEGATIVE (NEGATIVE); BENZODIAZEPINES URINE NEGATIVE (NEGATIVE); CANNABINOIDS URINE POSITIVE (NEGATIVE); COCAINE METABOLITE URINE NEGATIVE (NEGATIVE); METHADONE URINE NEGATIVE (NEGATIVE); OPIATES URINE NEGATIVE (NEGATIVE); PHENCYCLIDINE URINE NEGATIVE (NEGATIVE)
[2021-07-16] MEDS ORDERED: HOME MED LIST COMPLETE! XX SCH (04:50)
[2021-07-16] MEDS ORDERED: MOM 30ML SUSPENSION UDC PO PRN (14:30)
[2021-07-16] MEDS ORDERED: MAALOX 30 ML SUSP *UDC PO PRN (14:30)
[2021-07-16] MEDS ORDERED: LORazepam 1 MG TAB PO PRN (14:30)
[2021-07-16] MEDS ORDERED: ACETAMINOPHEN TAB 650MG DOSE (2X325MG) PO PRN (14:30)
[2021-07-16 16:30] VITALS: BP 136/84
[2021-07-16] MEDS: DIVALPROEX 250MG *ER* TAB PO SCH (17:40)
[2021-07-16] MEDS: RAMELTEON 8 MG TAB (ROZEREM) PO PRN (20:45)
[2021-07-17 06:51] VITALS: BP 140/87
[2021-07-17] MEDS: DIVALPROEX 250MG *ER* TAB PO SCH (09:07)
[2021-07-17] MEDS: NICOTINE 21MG/24HR 1 EA TRANSDERMAL TD SCH (09:48)
[2021-07-17] MEDS ORDERED: LORazepam 2 MG TAB PO PRN (09:55)
[2021-07-17 16:47] VITALS: BP 138/79
[2021-07-17] MEDS: ARIPiprazole 15 MG TAB (AbiLIFY) PO SCH (20:59)
[2021-07-17] MEDS: RAMELTEON 8 MG TAB (ROZEREM) PO PRN (23:02)
[2021-07-18 06:08] VITALS: BP 121/84
[2021-07-18] MEDS: DIVALPROEX 500MG *ER* TAB PO SCH (08:53)
[2021-07-18] MEDS: NICOTINE 21MG/24HR 1 EA TRANSDERMAL TD SCH (08:54)
[2021-07-18 15:13] LABS: CHOLESTEROL RISK RATIO 4.266 (<5)
[2021-07-18 19:06] VITALS: BP 136/89
[2021-07-18] MEDS: ARIPiprazole 15 MG TAB (AbiLIFY) PO SCH (21:05)
[2021-07-19 06:22] VITALS: BP 137/72
[2021-07-19] MEDS: NICOTINE 21MG/24HR 1 EA TRANSDERMAL TD SCH (08:12)
[2021-07-19] MEDS: DIVALPROEX 500MG *ER* TAB PO SCH (08:12)
[2021-07-19] MEDS: ARIPiprazole 15 MG TAB (AbiLIFY) PO SCH (20:32)
[2021-07-19] MEDS: RAMELTEON 8 MG TAB (ROZEREM) PO PRN (22:40)
[2021-07-20 06:44] VITALS: BP 137/79
[2021-07-20] MEDS: NICOTINE 21MG/24HR 1 EA TRANSDERMAL TD SCH (08:23)
[2021-07-20] MEDS: DIVALPROEX 500MG *ER* TAB PO SCH (08:23)
[2021-07-20] MEDS ORDERED: DIVALPROEX 500MG *ER* TAB PO ONE (11:00)
[2021-07-20 18:00] VITALS: BP 143/70
[2021-07-20] MEDS: risperiDONE 2 MG TAB PO SCH (20:18)
[2021-07-20] MEDS: RAMELTEON 8 MG TAB (ROZEREM) PO PRN (20:55)
[2021-07-20] MEDS ORDERED: ARIPiprazole 15 MG TAB (AbiLIFY) PO SCH (21:00)
[2021-07-21 06:15] VITALS: BP 136/87
[2021-07-21] MEDS: DIVALPROEX 500MG *ER* TAB PO SCH (08:48)
[2021-07-21] MEDS: risperiDONE 2 MG TAB PO SCH (08:48)
[2021-07-21] MEDS: NICOTINE 21MG/24HR 1 EA TRANSDERMAL TD SCH (08:48)
[2021-07-21 18:07] VITALS: BP 163/82
[2021-07-21] MEDS: risperiDONE 3 MG TAB PO SCH (20:07)
[2021-07-21] MEDS: RAMELTEON 8 MG TAB (ROZEREM) PO PRN (20:07)
[2021-07-22 06:34] VITALS: BP 143/89
[2021-07-22] MEDS: risperiDONE 3 MG TAB PO SCH ×2 (08:37→20:21)
[2021-07-22] MEDS: NICOTINE 21MG/24HR 1 EA TRANSDERMAL TD SCH (08:55)
[2021-07-22] MEDS: DIVALPROEX 500MG *ER* TAB PO SCH (09:00)
[2021-07-22 16:50] VITALS: BP 126/88
[2021-07-22] MEDS: RAMELTEON 8 MG TAB (ROZEREM) PO PRN (20:21)
[2021-07-23 06:12] VITALS: BP 134/82
[2021-07-23] MEDS ORDERED: DEPA500T2 PO ×2 (08:30→08:34)
[2021-07-23] MEDS ORDERED: DEPA250T2 PO (08:30)
[2021-07-23] MEDS ORDERED: RISP3TAB20 PO (08:33)
[2021-07-23] MEDS ORDERED: NICO21PAT TD (08:33)
[2021-07-23] MEDS ORDERED: RAME8TAB2 PO (08:33)
[2021-07-23] MEDS ORDERED: DIVALPROEX 250MG *ER* TAB PO SCH (09:00)
[2021-07-23] MEDS: risperiDONE 3 MG TAB PO SCH (09:00)
[2021-07-23] MEDS: NICOTINE 21MG/24HR 1 EA TRANSDERMAL TD SCH (09:00)
== END 2021-07-23 10:20 | disposition home or self-care (01) | DRG 750 ==
LOC: M ED 12:32 → M ED INP 07-16 14:28 → M PSY 07-16 16:21
PROVIDERS: ADMIT Student in an Organized Health Care Education/Training Program; ATTEND Student in an Organized Health Care Education/Training Program
DX: F25.0 Schizoaffective disorder, bipolar type (principal); F12.10 Cannabis abuse, uncomplicated; F17.200 Nicotine dependence, unspecified, uncomplicated; Z20.822 Contact with and (suspected) exposure to COVID-19; Z62.810 Personal history of physical and sexual abuse in childhood; Z63.0 Problems in relationship with spouse or partner

== ENCOUNTER 2021-07-27 11:14 | Inpatient (IN) | payer OTHER ==
[~2021-07-27] VITALS: Ht 167.6 cm; Wt 72.5 kg
[~2021-07-27 11:14] MED LIST changes: +DEPA250T2 PO; +DEPA500T2 PO; +RAME8TAB2 PO; +RISP3TAB20 PO
[2021-07-27] MEDS ORDERED: LORazepam 1 MG TAB PO STA (11:39)
[2021-07-27] MEDS ORDERED: haloperidoL 5 MG TAB PO ONE (11:40)
[2021-07-27] MEDS ORDERED: diphenhydrAMINE 50MG CAP PO ONE (11:40)
[2021-07-27 11:47] LABS: HEMATOCRIT 46.2 % (42.0-52.0); HEMOGLOBIN 15.1 g/dl (13.5-17.5); MEAN CORPUSCULAR HEMOGLOBIN 31.1 pg (27.0-33.0); MEAN CORPUSCULAR HGB CONC 32.7 g/dl (32.0-36.5); MEAN CORPUSCULAR VOLUME 95.1 fl (80.0-96.0); PLATELET COUNT, AUTOMATED 285 10^3/uL (150-450); RED BLOOD COUNT 4.86 10^6/uL (4.30-6.10); WHITE BLOOD COUNT 15.4 10^3/uL (4.0-10.0)
[2021-07-27 12:29] LABS: ACETAMINOPHEN LEVEL < 2.0 UG/ML (10.0-30.0); ALBUMIN 4.1 GM/DL (3.2-5.2); ALT/SGPT 43 U/L (12-78); BILIRUBIN,DIRECT < 0.1 MG/DL (0.0-0.2); BILIRUBIN,TOTAL 0.3 MG/DL (0.2-1.0); BLOOD UREA NITROGEN 20 MG/DL (7-18); CALCIUM LEVEL 9.6 MG/DL (8.5-10.1); CARBON DIOXIDE LEVEL 30 MEQ/L (21-32); CHLORIDE LEVEL 106 MEQ/L (98-107); CREATININE FOR GFR 0.81 MG/DL (0.70-1.30); ETHYL ALCOHOL (ETHANOL) < 0.003 % (0.000-0.010); GLOMERULAR FILTRATION RATE > 60.0 (>60); GLUCOSE, FASTING 112 MG/DL (70-100); POTASSIUM SERUM 4.4 MEQ/L (3.5-5.1); SALICYLATE LEVEL 1.9 MG/DL (5.0-30.0); SODIUM LEVEL 140 MEQ/L (136-145); TOTAL PROTEIN 7.7 GM/DL (6.4-8.2)
[2021-07-27 12:42] LABS: RSV AMPLIFICATION NEGATIVE (NEGATIVE)
[2021-07-27 12:43] LABS: AMPHETAMINES LEVEL URINE NEGATIVE (NEGATIVE); BARBITURATES URINE NEGATIVE (NEGATIVE); BENZODIAZEPINES URINE NEGATIVE (NEGATIVE); CANNABINOIDS URINE POSITIVE (NEGATIVE); COCAINE METABOLITE URINE NEGATIVE (NEGATIVE); METHADONE URINE NEGATIVE (NEGATIVE); OPIATES URINE NEGATIVE (NEGATIVE); PHENCYCLIDINE URINE NEGATIVE (NEGATIVE)
[2021-07-27] MEDS ORDERED: OLANZapine 5 MG TAB PO PRN (15:18)
[2021-07-27] MEDS ORDERED: MOM 30ML SUSPENSION UDC PO PRN (15:18)
[2021-07-27] MEDS ORDERED: MAALOX 30 ML SUSP *UDC PO PRN (15:18)
[2021-07-27] MEDS ORDERED: DIVA250T7 PO (15:58)
[2021-07-27] MEDS ORDERED: DIVA500T9 PO (15:58)
[2021-07-27] MEDS ORDERED: ROZE8TAB16 PO (15:58)
[2021-07-27] MEDS ORDERED: NICO21DI38 TD (15:58)
[2021-07-27] MEDS ORDERED: RISP-10 PO (15:58)
[2021-07-27] MEDS ORDERED: HOME MED LIST COMPLETE! XX SCH (16:00)
[2021-07-27] MEDS: NICOTINE 21MG/24HR 1 EA TRANSDERMAL TD SCH (20:56)
[2021-07-27] MEDS: risperiDONE 3 MG TAB PO SCH (20:56)
[2021-07-27] MEDS: DIVALPROEX 250MG *ER* TAB PO SCH (20:56)
[2021-07-27 21:10] VITALS: BP 140/76
[2021-07-28 06:23] VITALS: BP 102/64
[2021-07-28] MEDS: DIVALPROEX 250MG *ER* TAB PO SCH (08:42)
[2021-07-28] MEDS: NICOTINE 21MG/24HR 1 EA TRANSDERMAL TD SCH (08:42)
[2021-07-28] MEDS: risperiDONE 3 MG TAB PO SCH ×2 (08:42→20:34)
--- NOTE | 2021-07-28 10:05 | HPEPDOC ---
[facility] Medical History & Physical Date of Admission Jul 28, 2021 Date of Service: Jul 28, 2021 History and Physical CHIEF COMPLAINT: "they brought me here" HISTORY OF PRESENT ILLNESS: 36-year-old male with a past medical history of bipolar disorder, schizophrenia was brought to the emergency room department by police enforcement. He reported " they thought I was harassing my girlfriend" and released on own recognizance, but need to be cleared by psychiatry. Reviewing emergency room records, he reportedly also made threats to harming his family members on Facebook. He denies wanting to hurt himself or family members, and reports " they are the ones I need help, and I am trying to protect them". His speech was tangible and nongoal-directed at times. He was recently discharged from [facility] on 07/24, however was not able to refill his prescriptions. 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 However, at the same time he reports " you guys are trying to give me pills that can kill me, like [employer] [place]". At this junction, he denied chest pain, shortness of breath, abdominal pain, nausea, vomiting, problems with urination or bowel movements per PAST MEDICAL HISTORY: Denies PAST SURGICAL HISTORY: Denies SOCIAL HISTORY: Reports smoking 2 to 3 cigarettes daily, denies alcohol use, admits to marijuana use 2-3 times weekly FAMILY HISTORY: Mother: Diabetes ALLERGIES: Please see below. REVIEW OF SYSTEMS: 10 point review of system was negative except for what is noted in the HPI HOME MEDICATIONS: Please see below. PHYSICAL EXAMINATION: VITAL SIGNS: Please see below General: Lying in bed, no acute distress Head/Neck/Throat: Trachea midline, mucous membranes moist Eyes: Sclera anicteric, PERRLA Thorax: Normal respiratory effort on room air, lungs clear to auscultation bilaterally, no wheezes/rales/rhonchi Cardiovascular: Normal rate, regular rhythm, normal S1, S2; no S3, S4, rubs/gallops/murmurs Abdomen: Bowel sounds present, soft/nontender/nondistended Genitourinary: No CVA tenderness, no Vega in place Musculoskeletal: Moving all extremities, no edema Skin: Warm, dry Neurologic: AAOx3. Tangible speech and nongoal-directed LABORATORY DATA: See below. IMAGING: No imaging to review at this time MICROBIOLOGY: Please see below. ASSESSMENT/PLAN: 36-year-old male brought to the emergency room department by police enforcement for possible homicidal ideation and possibly exacerbation of his schizoaffective disorder. #Psych disorder -We will defer management to psychiatric team #Leukocytosis -No acute signs of infection. Recommend to repeat CBC to ensure resolution. #DVT prophylaxis -Encourage ambulation History and physical examination was done in the presence of a criminal investigative agent. Thank you for this consultation. Please reconsult as needed. Vital Signs Vital Signs Date Time Temp Pulse Resp B/P (MAP) Pulse Ox O2 Delivery O2 Flow Rate FiO2 07/28/21 06:23 97.8 101 16 102/64 (77) 100 Room Air Laboratory Data Labs 24H Laboratory Tests 2 07/27/21 11:37: Nucleated Red Blood Cells % (auto) 0.0, Anion Gap 4L, Glomerular Filtration Rate > 60.0, Calcium Level 9.6, Total Bilirubin 0.3, Direct Bilirubin < 0.1, Aspartate Amino Transf (AST/SGOT) 24, Alanine Aminotransferase (ALT/SGPT) 43, Alkaline Phosphatase 76, Total Protein 7.7, Albumin 4.1, Albumin/Globulin Ratio 1.1, Thyroid Stimulating Hormone (TSH) 4.090H, Salicylates Level 1.9L, Acetaminophen Level < 2.0L, Valproic Acid (Depakene) Level 5.0L, Ethyl Alcohol Level < 0.003 07/27/21 11:42: Coronavirus (COVID-19)(PCR) NEGATIVE, Influenza Type A (RT-PCR) NEGATIVE, Influenza Type B (RT-PCR) NEGATIVE, Respiratory Syncytial Virus (PCR) NEGATIVE 07/27/21 11:43: Urine Opiates Screen NEGATIVE, Urine Methadone Screen NEGATIVE, Urine Barbiturates Screen NEGATIVE, Urine Phencyclidine Screen NEGATIVE, Urine Amphetamines Screen NEGATIVE, Urine Benzodiazepines Screen NEGATIVE, Urine Cocaine Metabolite Screen NEGATIVE, Urine Cannabinoids Screen POSITIVEH CBC/BMP Laboratory Tests 07/27/21 11:37 Home Medications Scheduled Divalproex Sodium (Divalproex Sodium ER) 500 Mg Tab.er.24h, 1,000 MG PO DAILY TAKE WITH 250MG TAB. TOTAL OF 1250MG. Divalproex Sodium (Divalproex Sodium ER) 250 Mg Tab.er.24h, 250 MG PO DAILY TAKE WITH 500MG TB. TOTAL OF 1250MG. Nicotine (Nicotine Patch) 21 Mg/24 Hr Patch.td24, 21 MG TD DAILY Ramelteon (Rozerem) 8 Mg Tablet, 8 MG PO QHS Risperidone (Risperidone) 3 Mg Tablet, 3 MG PO BID Allergies Coded Allergies: No Known Allergies (Unverified , 07/17/17) A-FIB/CHADSVASC A-FIB History Current/History of A-Fib/PAF?: No DAISY PIERCE M.D. Jul 28, 2021 10:05
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
[2021-07-28 12:36] LABS: BLOOD UREA NITROGEN 13 MG/DL (7-18); CALCIUM LEVEL 9.5 MG/DL (8.5-10.1); CARBON DIOXIDE LEVEL 29 MEQ/L (21-32); CHLORIDE LEVEL 103 MEQ/L (98-107); CREATININE FOR GFR 0.88 MG/DL (0.70-1.30); FREE T4 0.91 NG/DL (0.76-1.46); GLOMERULAR FILTRATION RATE > 60.0 (>60); GLUCOSE, FASTING 108 MG/DL (70-100); POTASSIUM SERUM 4.2 MEQ/L (3.5-5.1); SODIUM LEVEL 139 MEQ/L (136-145)
[2021-07-28 16:17] VITALS: BP 115/69
[2021-07-28] MEDS: traZODone 50 MG TAB PO PRN (20:34)
[2021-07-29 06:11] VITALS: BP 128/81
[2021-07-29 07:47] LABS: BASO % 0.3 % (0.0-1.0); EOS # 0.1 10^3/uL (0.0-0.5); EOS % 0.7 % (0.0-3.0); HEMATOCRIT 45.3 % (42.0-52.0); HEMOGLOBIN 14.9 g/dl (13.5-17.5); LYMPH # 2.9 10^3/uL (1.5-5.0); LYMPH % 24.2 % (24.0-44.0); MEAN CORPUSCULAR HGB CONC 32.9 g/dl (32.0-36.5); MEAN CORPUSCULAR VOLUME 94.2 fl (80.0-96.0); MONO % 8.3 % (2.0-8.0); NEUTROPHILS # 7.9 10^3/uL (1.5-8.5); PLATELET COUNT, AUTOMATED 267 10^3/uL (150-450); RED BLOOD COUNT 4.81 10^6/uL (4.30-6.10)
[2021-07-29] MEDS: risperiDONE 3 MG TAB PO SCH ×2 (08:03→20:45)
[2021-07-29] MEDS: DIVALPROEX 250MG *ER* TAB PO SCH (08:03)
[2021-07-29] MEDS: NICOTINE 21MG/24HR 1 EA TRANSDERMAL TD SCH (08:04)
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
[2021-07-29] MEDS ORDERED: BENZTROPINE 1 MG TAB PO PRN (11:35)
[2021-07-29 16:17] VITALS: BP 153/90
[2021-07-29] MEDS: traZODone 50 MG TAB PO PRN (20:45)
[2021-07-29] MEDS: CEPHALEXIN 500 MG CAP PO SCH (21:55)
[2021-07-30 07:14] VITALS: BP 136/75
[2021-07-30] MEDS: risperiDONE 3 MG TAB PO SCH (08:11)
[2021-07-30] MEDS: CEPHALEXIN 500 MG CAP PO SCH ×2 (08:11→20:30)
[2021-07-30] MEDS: NICOTINE 21MG/24HR 1 EA TRANSDERMAL TD SCH (08:12)
[2021-07-30] MEDS: DIVALPROEX 250MG *ER* TAB PO SCH (08:12)
[2021-07-30] MEDS ORDERED: risperiDONE LONG-ACTING 25 MG/2 ML INJ (J2794 PER 0.5MG) IM SCH (09:00)
[2021-07-30] MEDS ORDERED: risperiDONE LONG-ACTING 37.5 MG/2 ML INJ (J2794 PER 0.5MG) IM SCH (09:00)
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
[2021-07-30 17:45] VITALS: BP 138/84
[2021-07-30] MEDS: risperiDONE 2 MG TAB PO SCH (20:30)
[2021-07-30] MEDS: traZODone 50 MG TAB PO PRN (21:53)
[2021-07-31] MEDS: CEPHALEXIN 500 MG CAP PO SCH ×2 (08:20→20:10)
[2021-07-31] MEDS: risperiDONE 2 MG TAB PO SCH ×2 (08:20→20:10)
[2021-07-31] MEDS: NICOTINE 21MG/24HR 1 EA TRANSDERMAL TD SCH (08:21)
[2021-07-31] MEDS: DIVALPROEX 250MG *ER* TAB PO SCH (08:21)
[2021-07-31 09:26] VITALS: BP 148/80
[2021-07-31 17:29] VITALS: BP 111/69
[2021-07-31] MEDS: ACETAMINOPHEN TAB 650MG DOSE (2X325MG) PO PRN (20:38)
[2021-07-31] MEDS: traZODone 50 MG TAB PO PRN (20:38)
[2021-08-01 07:02] VITALS: BP 146/70
[2021-08-01] MEDS: DIVALPROEX 250MG *ER* TAB PO SCH (09:00)
[2021-08-01] MEDS: risperiDONE 2 MG TAB PO SCH ×2 (09:00→20:21)
[2021-08-01] MEDS: CEPHALEXIN 500 MG CAP PO SCH ×2 (09:38→20:21)
[2021-08-01] MEDS: NICOTINE 21MG/24HR 1 EA TRANSDERMAL TD SCH (09:38)
--- NOTE | 2021-08-01 12:06 | IPNPDOC ---
Text Note Date of Service The patient was seen on 08/01/21. NOTE Asked by the nurse to evaluate patient's right lower extremity leg. Patient complains of pain in the anterior de souza region, redness, and pain. Reports he is unable to bear weight on the leg due to pain in the area his leg is red. He was concerns of having a lower extremity clot due to omicron variant of COVID-19. He was unable to recollect if he had bumped his leg somewhere. He denies chest pain, shortness of breath. He was seen and examined at bedside with a data recovery planner. There was a 4 to 5 cm area of slight erythema over the right mid de souza region. There was slight warmth when compared to the contralateral region. There is no purulence appreciated. Calf muscle was nontender, soft. Perla's sign was negative. There is no tenderness reported with palpation of the bony prominences of the lower extremity including the knee, ankle as well as toes. Dorsalis pedal pulses strong bilaterally. Patient was started on cephalexin overnight, which should be continued. His leg should be monitored for resolution of symptoms. His Well's score is 0. Low suspicion for a DVT at this time. VS,Fishbone, I+O VS, Fishbone, I+O Vital Signs Date Time Temp Pulse Resp B/P (MAP) Pulse Ox O2 Delivery O2 Flow Rate FiO2 08/01/21 08:25 Room Air 08/01/21 07:02 98.2 81 16 146/70 (95) 99 DAISY PIERCE M.D. Aug 01, 2021 12:06
[2021-08-01 15:36] VITALS: BP 139/88
[2021-08-01] MEDS: ACETAMINOPHEN TAB 650MG DOSE (2X325MG) PO PRN (16:39)
[2021-08-01] MEDS: traZODone 50 MG TAB PO PRN (22:39)
[2021-08-02] MEDS: ACETAMINOPHEN TAB 650MG DOSE (2X325MG) PO PRN ×2 (04:06→16:18)
[2021-08-02 06:22] VITALS: BP 151/80
[2021-08-02] MEDS: DIVALPROEX 250MG *ER* TAB PO SCH (08:51)
[2021-08-02] MEDS: risperiDONE 2 MG TAB PO SCH ×2 (08:51→21:15)
[2021-08-02] MEDS: BACTRIM 160MG/800MG DS TAB PO SCH ×2 (08:53→21:15)
[2021-08-02] MEDS: NICOTINE 21MG/24HR 1 EA TRANSDERMAL TD SCH (08:54)
--- NOTE | 2021-08-02 09:00 | REP ---
INDICATION: Trauma to right leg 1 month ago to upper de souza region COMPARISON: None. TECHNIQUE: AP and lateral right tibia/fibula FINDINGS: The osseous structures and joint spaces are intact and normal. There is no evidence for acute fracture or dislocation. Surrounding soft tissues are unremarkable. No subcutaneous emphysema or radiodense foreign body. IMPRESSION: No evidence for fracture or dislocation. No obvious soft tissue injury. <Electronically signed by Catarino Noel > 08/02/21 [id number]
--- NOTE | 2021-08-02 09:01 | REP ---
INDICATION: Trauma to right leg 1 month ago to upper de souza region COMPARISON: None. TECHNIQUE: AP, lateral, and bilateral oblique views of the right knee FINDINGS: The osseous structures and joint spaces are intact and normal. There is no evidence for acute fracture or dislocation. No joint effusion is appreciated. Surrounding soft tissues are unremarkable. No subcutaneous emphysema or radiodense foreign body. IMPRESSION: Normal examination. No acute fracture or dislocation. <Electronically signed by Catarino Noel > 08/02/21 0826
[2021-08-02 09:48] LABS: HEMATOCRIT 46.3 % (42.0-52.0); HEMOGLOBIN 15.2 g/dl (13.5-17.5); MEAN CORPUSCULAR HEMOGLOBIN 30.9 pg (27.0-33.0); MEAN CORPUSCULAR HGB CONC 32.8 g/dl (32.0-36.5); MEAN CORPUSCULAR VOLUME 94.1 fl (80.0-96.0); PLATELET COUNT, AUTOMATED 286 10^3/uL (150-450); RED BLOOD COUNT 4.92 10^6/uL (4.30-6.10); WHITE BLOOD COUNT 12.6 10^3/uL (4.0-10.0)
--- NOTE | 2021-08-02 12:04 | REP ---
INDICATION: r/o dvt; and abscess around cellulitis site COMPARISON: None. TECHNIQUE: Allen scale and color Doppler evaluation using linear high frequency transducer. FINDINGS: Ultrasound examination of the right lower extremity deep venous structures from the common femoral vein through the popliteal vein demonstrates normal compressibility, flow and wave patterns in response to respiration and augmentation. Evaluation of the calf veins demonstrate normal compressibility of the right peroneal and posterior tibial veins. There is no evidence for deep venous thrombosis. Contralateral CFV is patent and normal. IMPRESSION: No evidence for deep venous thrombosis. <Electronically signed by Catarino Noel > 08/02/21 1200
--- NOTE | 2021-08-02 12:06 | REP ---
INDICATION: r/o abscess rt leg COMPARISON: None TECHNIQUE: Limited directed real time garcia scale ultrasound examination using curved array transducer. FINDINGS: Directed ultrasound examination overlying the anterior mid de souza at the site of prior trauma demonstrates subcutaneous edema without fluid collection/hematoma or abscess. IMPRESSION: 1. Edema. No discrete fluid collection/hematoma or abscess. <Electronically signed by Catarino Noel > 08/02/21 120
--- NOTE | 2021-08-02 15:16 | IPNPDOC ---
Text Note Date of Service The patient was seen on 08/02/21. NOTE Patient reevaluated today for right lower extremity cellulitis. Complains of pain in erythematous region and warmth. Region of erythema has increased from 08/01. He reports trauma to the leg approximately 1 month ago. Vitals are unremarkable Right leg examination reveals erythema has increased from 4 to 5cm to 7 to 10 cm over the anterior de souza region. Warm compared to contralateral side. Dorsalis pedis pulses are palpable bilaterally. Perla sign negative. A/P Obtain x-rays of the right knee and tibia/fibula to rule out fracture Lower extremity ultrasound to rule out DVT Lower extremity ultrasound to rule out abscess collection Switch antibiotics from cephalexin to Bactrim VS,Fishbone, I+O VS, Fishbone, I+O Laboratory Tests 08/02/21 09:23 Vital Signs Date Time Temp Pulse Resp B/P (MAP) Pulse Ox O2 Delivery O2 Flow Rate FiO2 08/02/21 08:30 Room Air 08/02/21 07:45 98.5 08/02/21 06:22 97 18 151/80 (103) 98 DAISY PIERCE M.D. Aug 02, 2021 15:16
[2021-08-02 15:39] VITALS: BP 138/84
--- NOTE | 2021-08-02 16:15 | REP ---
INDICATION: f/u of tib/fib pain/cellulitis. COMPARISON: None. TECHNIQUE: Axial noncontrast images from the knee through the ankle with coronal and sagittal reformations. FINDINGS: Mild subcutaneous edema/infiltration is appreciated primarily along the anteromedial aspect beginning from the upper tibia to the ankle. No associated drainable collection. The deep fascia and musculature are unaffected. No subcutaneous emphysema. The osseous structures are intact and normal. IMPRESSION: Mild subcutaneous edema/infiltration along the anteromedial aspect of the tibia consistent with the given history of cellulitis. No drainable collection or deep infectious/inflammatory changes. <Electronically signed by Catarino Noel > 08/02/21 [id number]
[2021-08-02] MEDS ORDERED: OLANZapine ORAL DISINTEGRATING TAB 5MG PO PRN (22:30)
[2021-08-02] MEDS: traZODone 50 MG TAB PO PRN (22:34)
[2021-08-03] MEDS: ACETAMINOPHEN TAB 650MG DOSE (2X325MG) PO PRN (02:44)
[2021-08-03 05:52] VITALS: BP 126/77
[2021-08-03 06:57] LABS: HEMATOCRIT 45.6 % (42.0-52.0); HEMOGLOBIN 15.1 g/dl (13.5-17.5); MEAN CORPUSCULAR HEMOGLOBIN 31.3 pg (27.0-33.0); MEAN CORPUSCULAR HGB CONC 33.1 g/dl (32.0-36.5); MEAN CORPUSCULAR VOLUME 94.4 fl (80.0-96.0); PLATELET COUNT, AUTOMATED 296 10^3/uL (150-450); RED BLOOD COUNT 4.83 10^6/uL (4.30-6.10); WHITE BLOOD COUNT 15.9 10^3/uL (4.0-10.0)
[2021-08-03 08:21] LABS: EOSINOPHILS 1 % (0-3); LYMPHOCYTES 16 % (16-44); MONOCYTES 2 % (0-5); NEUTROPHILS 81 % (28-66)
[2021-08-03] MEDS: BACTRIM 160MG/800MG DS TAB PO SCH ×2 (08:21→20:11)
[2021-08-03 08:22] LABS: PLATELET ESTIMATE NORMAL (NORMAL)
[2021-08-03] MEDS: NICOTINE 21MG/24HR 1 EA TRANSDERMAL TD SCH (08:23)
[2021-08-03] MEDS: risperiDONE 2 MG TAB PO SCH ×2 (09:00→20:12)
[2021-08-03] MEDS: DIVALPROEX 250MG *ER* TAB PO SCH (09:00)
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
[2021-08-03 18:34] VITALS: BP 139/70
[2021-08-04] MEDS: traZODone 50 MG TAB PO PRN (01:55)
[2021-08-04 06:41] VITALS: BP 140/84
[2021-08-04] MEDS: BACTRIM 160MG/800MG DS TAB PO SCH ×2 (08:59→19:58)
[2021-08-04] MEDS: risperiDONE 2 MG TAB PO SCH (09:00)
[2021-08-04] MEDS: NICOTINE 21MG/24HR 1 EA TRANSDERMAL TD SCH (09:00)
[2021-08-04] MEDS: DIVALPROEX 250MG *ER* TAB PO SCH (09:00)
[2021-08-04 16:48] VITALS: BP 141/89
[2021-08-04 16:55] VITALS: BP 146/78
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
[2021-08-04] MEDS: risperiDONE 3 MG TAB PO SCH (19:58)
[2021-08-05 06:45] VITALS: BP 135/75
[2021-08-05] MEDS: DIVALPROEX 250MG *ER* TAB PO SCH (08:41)
[2021-08-05] MEDS: BACTRIM 160MG/800MG DS TAB PO SCH ×2 (08:41→20:40)
[2021-08-05] MEDS: NICOTINE 21MG/24HR 1 EA TRANSDERMAL TD SCH (08:43)
--- NOTE | 2021-08-05 13:02 | IPNPDOC ---
Text Note Date of Service The patient was seen on 08/05/21. NOTE Patient was reevaluated for his right lower extremity cellulitis. Imaging results were reviewed. There has been significant improvement in erythema. He no longer complains of pain and is walking/ambulatory without difficulty. We will complete a 7-day course of antibiotics. VS,Fishbone, I+O VS, Fishbone, I+O Vital Signs Date Time Temp Pulse Resp B/P (MAP) Pulse Ox O2 Delivery O2 Flow Rate FiO2 08/05/21 06:45 98.2 87 16 135/75 (95) 98 Room Air DAISY PIERCE M.D. Aug 05, 2021 13:02
[2021-08-05 17:54] VITALS: BP 126/61
[2021-08-05] MEDS: risperiDONE 3 MG TAB PO SCH (20:40)
[2021-08-05] MEDS: traZODone 50 MG TAB PO PRN (21:38)
[2021-08-06 06:25] VITALS: BP 144/88
[2021-08-06] MEDS: BACTRIM 160MG/800MG DS TAB PO SCH ×2 (08:11→20:21)
[2021-08-06] MEDS: DIVALPROEX 250MG *ER* TAB PO SCH (08:11)
[2021-08-06] MEDS: NICOTINE 21MG/24HR 1 EA TRANSDERMAL TD SCH (08:13)
[2021-08-06 10:52] LABS: BASO % 0.5 % (0.0-1.0); EOS # 0.1 10^3/uL (0.0-0.5); EOS % 0.8 % (0.0-3.0); HEMATOCRIT 41.8 % (42.0-52.0); HEMOGLOBIN 13.7 g/dl (13.5-17.5); LYMPH # 2.2 10^3/uL (1.5-5.0); LYMPH % 28.8 % (24.0-44.0); MEAN CORPUSCULAR HEMOGLOBIN 31.1 pg (27.0-33.0); MEAN CORPUSCULAR HGB CONC 32.8 g/dl (32.0-36.5); MEAN CORPUSCULAR VOLUME 94.8 fl (80.0-96.0); MONO # 0.8 10^3/uL (0.0-0.8); MONO % 10.1 % (2.0-8.0); NEUTROPHILS # 4.4 10^3/uL (1.5-8.5); NEUTROPHILS % 58.6 % (36.0-66.0); PLATELET COUNT, AUTOMATED 282 10^3/uL (150-450); RED BLOOD COUNT 4.41 10^6/uL (4.30-6.10); WHITE BLOOD COUNT 7.5 10^3/uL (4.0-10.0)
--- NOTE | 2021-08-06 13:00 | MHIPN ---
[facility] PROGRESS NOTE DATE: 08/05/2021 VITAL SIGNS: Temperature 98.2, pulse 87, respirations 16, blood pressure 135/75. CURRENT MEDICATIONS: - Risperdal 3 mg at bedtime - Bactrim twice a day - Risperdal Consta 50 mg intramuscularly (IM) every 2 weeks - trazodone 50 mg at bedtime - Depakote 1250 mg daily, taken episodically HISTORY OF PRESENT ILLNESS: This is a 36-year-old white male with a history of bipolar disorder. Patient was rehospitalized after decompensating quickly earlier in July, when he stopped taking his medication. Patient states he is more comfortable with his medications today. He admits that he does have trust issues but feels that he can trust his psychotropics now that his cellulitis is improving. He did take his morning Depakote dosage today, which is first time in a number of days. He states his appetite is good. He is happy that he has gained 15 pounds recently. Patient states he slept better last night. He was having some issues with his roommate yesterday, who was quite psychotic and threatening. Patient wants to get out of the hospital at some point in the near future but is willing to wait for his day in court. MENTAL STATUS EXAMINATION: Patient is alert, oriented, and cooperative. Speech is still somewhat rapid and rambling today but is less pressured. He is not agitated. Patient has chronic paranoia but is more trusting of staff, he reports. Thought processes are more appropriate today. He denies any hallucinations, auditory or visual. Insight appears somewhat improved. Judgment appears improved. No signs of cognitive deficits. No current signs of impulsivity or dangerousness. DIAGNOSES: 1. Schizoaffective disorder, bipolar type. 2. Cannabis use disorder. 3. Tobacco use disorder. ASSESSMENT: Patient appears to be more compliant with his psychotropics, boding well for clinical improvement. PLAN: Continue present management. Involve in hospital milieu. Staff working on discharge planning as appropriate. NIKIA
--- NOTE | 2021-08-06 14:21 | MHIPN ---
[facility] PROGRESS [facility] DATE: 08/06/2021 VITAL SIGNS: Temperature 97.4, pulse 101, respirations 18, blood pressure 144/88. CURRENT MEDICATIONS: - Risperdal 3 mg at bedtime - Bactrim double strength twice a day - Risperdal Consta 50 mg intramuscularly (IM) every 2 weeks - trazodone 50 mg at bedtime as needed - Depakote 1250 mg daily HISTORY OF PRESENT ILLNESS: Patient states his mood has been more stable. He has been compliant with the Depakote for the second day in a row. He surprisingly likes to take the Depakote in the morning. It has no sedative properties, apparently. It seems to be well tolerated without any gastrointestinal side effects. He states he is in more control of his impulses. Patient claims that he has a place to live. [place]; however, staff reports that the trailer has been condemned and is not a suitable housing disposition at this time. He states his appetite is good. He is sleeping better at night. He has no other complaints. MENTAL STATUS EXAMINATION: Patient is alert, oriented, and cooperative. Speech is still somewhat rapid and pressured with mild racing thoughts. No signs of agitation. No current signs of psychosis. He denies auditory hallucinations. No signs of ideas of reference. Insight and judgment are somewhat improved. No evidence of cognitive deficits. Impulse control seems somewhat improved. DIAGNOSES: 1. Schizoaffective disorder, bipolar type. 2. Cannabis use disorder. 3. Tobacco use disorder. ASSESSMENT: Patient tolerating medication well. PLAN: Continue present management. Staff working on discharge planning. [facility]
[2021-08-06 17:50] VITALS: BP 120/75
[2021-08-06] MEDS: risperiDONE 3 MG TAB PO SCH (20:21)
[2021-08-06] MEDS: traZODone 50 MG TAB PO PRN (21:36)
[2021-08-07 06:35] VITALS: BP 115/56
[2021-08-07] MEDS: BACTRIM 160MG/800MG DS TAB PO SCH ×2 (08:57→21:34)
[2021-08-07] MEDS: DIVALPROEX 250MG *ER* TAB PO SCH (08:58)
[2021-08-07] MEDS: NICOTINE 21MG/24HR 1 EA TRANSDERMAL TD SCH (09:00)
--- NOTE | 2021-08-07 15:13 | MHIPN ---
[facility] PROGRESS NOTE DATE: 08/07/2021 VITAL SIGNS: Temperature 97.9, pulse 82, respirations 20, blood pressure 115/56. CURRENT MEDICATIONS: - Risperdal 3 mg at bedtime - Risperdal Consta 50 mg intramuscularly every 2 weeks - trazodone 50 mg at bedtime as needed - Depakote ER 1250 mg by mouth daily LABORATORY: Valproic acid level 68. HISTORY OF PRESENT ILLNESS: Patient states his appetite is good. He sleeps well at night. He denies any depressive symptoms today. He feels optimistic about the future. He still gets irritable about the ex-girlfriend, claiming that she is lying about him and his situation. He still reports racing thoughts. Patient has been cooperative with his Depakote. Blood level is therapeutic at 68. Patient continues to fixate on a grandiose belief system about becoming a martial arts performer. He wants to go out to [employer] to train and to compete. 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 MENTAL STATUS EXAMINATION: Patient is alert and oriented today. He is reasonably cooperative. Speech is still rapid with pressured speech and agitation and irritability at times. Patient is not psychotic. Reality testing appears intact. Insight appears limited. Judgment appears fair. No signs of cognitive deficits. DIAGNOSES: 1. Schizoaffective disorder, bipolar type. 2. Cannabis use disorder. 3. Tobacco use disorder. ASSESSMENT: Patient is compliant with his psychotropics. No behavioral disturbances here on the unit. PLAN: Continue present management. Monitor mood over the weekend. Staff working on possible discharge plans for Tuesday.
[2021-08-07 15:20] VITALS: BP 124/82
[2021-08-07] MEDS: risperiDONE 3 MG TAB PO SCH (21:34)
[2021-08-08 06:48] VITALS: BP 119/65
[2021-08-08] MEDS: BACTRIM 160MG/800MG DS TAB PO SCH ×2 (08:40→20:20)
[2021-08-08] MEDS: DIVALPROEX 250MG *ER* TAB PO SCH (08:42)
[2021-08-08] MEDS: NICOTINE 21MG/24HR 1 EA TRANSDERMAL TD SCH (08:43)
[2021-08-08 18:05] VITALS: BP 117/70
[2021-08-08] MEDS: risperiDONE 3 MG TAB PO SCH (20:20)
[2021-08-08] MEDS: traZODone 50 MG TAB PO PRN (21:54)
[2021-08-09 07:08] VITALS: BP 134/71
[2021-08-09] MEDS: DIVALPROEX 250MG *ER* TAB PO SCH (08:25)
[2021-08-09] MEDS: NICOTINE 21MG/24HR 1 EA TRANSDERMAL TD SCH (08:26)
[2021-08-09] MEDS: risperiDONE 3 MG TAB PO SCH (20:10)
[2021-08-09] MEDS: traZODone 50 MG TAB PO PRN (20:10)
[2021-08-10 06:39] VITALS: BP 114/65
[2021-08-10] MEDS: DIVALPROEX 250MG *ER* TAB PO SCH (08:24)
[2021-08-10] MEDS: NICOTINE 21MG/24HR 1 EA TRANSDERMAL TD SCH (08:24)
[2021-08-10] MEDS ORDERED: RISP-10 PO (11:12)
[2021-08-10] MEDS ORDERED: DEPA250T2 PO (11:12)
--- NOTE | 2021-08-11 10:01 | MHDS ---
[facility] DISCHARGE SUMMARY DATE OF ADMISSION: 07/27/2021 DATE OF DISCHARGE: 08/10/2021 VITAL SIGNS: Temperature 97.3, pulse 83, respirations 16, blood pressure 114/65. LABORATORY STUDIES: CBC and differential was normal except for low hematocrit at 41.8. Serum chemistry was within normal limits except for low anion gap at 7. Fasting glucose was elevated at 108. Urine toxicology screen was negative except for cannabinoids. Patient's valproic acid level prior to discharge on 08/07/2021 was therapeutic at 68. DISCHARGE DIAGNOSES: 1. Schizoaffective disorder, bipolar type. 2. Cannabis use disorder. 3. Nicotine use disorder. DISCHARGE MEDICATIONS: - Risperdal 3 mg at bedtime - Depakote ER 1250 mg in the morning - Risperdal Consta 50 mg intramuscular (IM) every two weeks, next dose due August 14, 2021 CHIEF COMPLAINT: The patient threatening family members over social media. HISTORY OF PRESENT ILLNESS: The patient was admitted by Dr. Moss. This is a 36-year-old white male with recent inpatient mental health unit ([facility]) admission. Patient returned to the emergency room after threatening family members on social media. Patient was paranoid about his family and his girlfriend. Patient had not been medication compliant upon discharge. Patient had been arrested for harassing his girlfriend prior to admission. PROGRESS ON THE UNIT: Patient was quite manic. Patient's Depakote was reinstituted and was tolerated well until he developed cellulitis of his right leg. He blamed the Depakote, so he discontinued it for a brief time. This prolonged his hospitalization. Patient was then under my care upon Dr. Moss's absence. Patient was still quite grandiose about his wrestling skills and martial arts skills. He was very religiously preoccupied as well. Patient was given the Risperdal Consta injection, which was tolerated well. Patient's grandiosity gradually improved. He showed no depressive ideation. He no longer voiced any homicidal ideation, either. Patient was more appropriate on the unit, started to attend the group therapy program. There were no outbursts on the unit. Patient was agreeable to outpatient followup. He seemed to be enjoying good insight and to comply with outpatient medication and mental health services. MENTAL STATUS EXAMINATION: At time of discharge, patient was alert, oriented and cooperative. No signs of agitation. He was not depressed, not suicidal, not homicidal. Grandiosity was markedly improved. He still reported some paranoia, but no signs of thought disorder. No signs of impulsivity or dangerousness. No signs of cognitive deficits. ASSESSMENT: Patient appears to be reaching maximal hospital benefit. PLAN: Discharge to the community. Patient is due for another Risperdal Consta injection later in the week.
[2021-08-12] MEDS ORDERED: risperiDONE LONG-ACTING 25 MG/2 ML INJ (J2794 PER 0.5MG) IM SCH (09:00)
[2021-08-12] MEDS ORDERED: risperiDONE LONG-ACTING 37.5 MG/2 ML INJ (J2794 PER 0.5MG) IM SCH (09:00)
== END 2021-08-10 13:10 | disposition home or self-care (01) | DRG 750 ==
LOC: M ED 11:14 → M ED INP 15:24 → M PSY 17:17
PROVIDERS: ADMIT Student in an Organized Health Care Education/Training Program; ATTEND Psychiatry & Neurology Psychiatry
DX: F25.0 Schizoaffective disorder, bipolar type (principal); L03.115 Cellulitis of right lower limb; F17.210 Nicotine dependence, cigarettes, uncomplicated; F12.90 Cannabis use, unspecified, uncomplicated; Z79.899 Other long term (current) drug therapy

== ENCOUNTER 2022-11-15 08:04 | Inpatient (IN) | payer OTHER ==
[~2022-11-15] VITALS: Ht 170.2 cm; Wt 71.0 kg
[~2022-11-15 08:04] MED LIST changes: +DIVA250T7 PO; +DIVA500T9 PO; +NICO21DI38 TD; +RISP-10 PO; +ROZE8TAB16 PO
[2022-11-15 09:14] LABS: HEMATOCRIT 46.9 % (42.0-52.0); MEAN CORPUSCULAR HGB CONC 34.1 g/dl (32.0-36.5); MEAN CORPUSCULAR VOLUME 93.8 fl (80.0-96.0); PLATELET COUNT, AUTOMATED 322 10^3/uL (150-450); WHITE BLOOD COUNT 15.1 10^3/uL (4.0-10.0)
[2022-11-15 09:52] LABS: ETHYL ALCOHOL (ETHANOL) 0.004 % (0.000-0.010)
[2022-11-15 09:53] LABS: ACETAMINOPHEN LEVEL < 2.0 UG/ML (10.0-20.0)
[2022-11-15 09:54] LABS: ALBUMIN 4.3 G/DL (3.2-5.2); ALKALINE PHOSPHATASE 82 U/L (46-116); ALT/SGPT 79 U/L (7.0-40); AST/SGOT 158 U/L (<34); BILIRUBIN,DIRECT 0.2 MG/DL (<0.4); BILIRUBIN,TOTAL 0.6 MG/DL (0.3-1.2); BLOOD UREA NITROGEN 15 MG/DL (9-23); CALCIUM LEVEL 9.7 MG/DL (8.5-10.1); CARBON DIOXIDE LEVEL 26 MMOL/L (20-31); CHLORIDE LEVEL 104 MMOL/L (98-107); CREATININE FOR GFR 0.83 MG/DL (0.70-1.30); GLOMERULAR FILTRATION RATE > 60.0 (>60); GLUCOSE, FASTING 80 MG/DL (60-100); POTASSIUM SERUM 4.3 MMOL/L (3.5-5.1); SALICYLATE LEVEL < 3.0 MG/DL (<30); SODIUM LEVEL 138 MMOL/L (136-145); TOTAL PROTEIN 7.6 G/DL (5.7-8.2)
[2022-11-15 09:56] LABS: THYROID STIMULATING HORMONE 1.376 uIU/ML (0.55-4.78)
[2022-11-15 10:10] LABS: AMPHETAMINES LEVEL URINE NEGATIVE (NEGATIVE); BARBITURATES URINE NEGATIVE (NEGATIVE); BENZODIAZEPINES URINE NEGATIVE (NEGATIVE); COCAINE METABOLITE URINE NEGATIVE (NEGATIVE); METHADONE URINE NEGATIVE (NEGATIVE); OPIATES URINE NEGATIVE (NEGATIVE); PHENCYCLIDINE URINE NEGATIVE (NEGATIVE)
[2022-11-15 10:11] LABS: CANNABINOIDS URINE POSITIVE (NEGATIVE)
[2022-11-15] MEDS ORDERED: HOME MED LIST COMPLETE! XX SCH (13:45)
[2022-11-15] MEDS ORDERED: LORazepam 1 MG TAB PO PRN (13:55)
[2022-11-15] MEDS ORDERED: MOM 30ML SUSPENSION UDC PO PRN (13:55)
[2022-11-15] MEDS ORDERED: IBUPROFEN 400MG TAB PO PRN (13:55)
[2022-11-15] MEDS ORDERED: MAALOX 30 ML SUSP *UDC PO PRN (13:55)
[2022-11-15] MEDS ORDERED: LORazepam 2 MG TAB PO PRN (13:55)
[2022-11-15] MEDS ORDERED: ACETAMINOPHEN TAB 650MG DOSE (2X325MG) PO PRN (13:55)
[2022-11-15] MEDS ORDERED: OLANZapine ORAL DISINTEGRATING TAB 5MG PO STA (17:09)
[2022-11-15] MEDS: THIAMINE 100 MG TAB PO SCH ×2 (18:01→21:00)
[2022-11-15] MEDS: FOLIC ACID 1MG TAB PO SCH (18:01)
[2022-11-15] MEDS: MULTIVITAMINS/MINERALS THERAP 1 TAB PO SCH (18:01)
[2022-11-15 22:00] VITALS: BP 112/66
[2022-11-15 22:02] VITALS: BP 112/66
[2022-11-16 06:52] VITALS: BP 134/84
[2022-11-16 06:53] VITALS: BP 134/84
[2022-11-16 08:24] LABS: BASO % 0.3 % (0.0-1.0); EOS # 0.1 10^3/uL (0.0-0.5); EOS % 0.7 % (0.0-3.0); HEMATOCRIT 45.8 % (42.0-52.0); HEMOGLOBIN 15.7 g/dl (13.5-17.5); LYMPH # 3.1 10^3/uL (1.5-5.0); LYMPH % 26.6 % (24.0-44.0); MEAN CORPUSCULAR HEMOGLOBIN 32.4 pg (27.0-33.0); MEAN CORPUSCULAR HGB CONC 34.3 g/dl (32.0-36.5); MEAN CORPUSCULAR VOLUME 94.4 fl (80.0-96.0); MONO # 0.9 10^3/uL (0.0-0.8); MONO % 7.7 % (2.0-8.0); NEUTROPHILS # 7.4 10^3/uL (1.5-8.5); NEUTROPHILS % 64.3 % (36.0-66.0); PLATELET COUNT, AUTOMATED 314 10^3/uL (150-450); RED BLOOD COUNT 4.85 10^6/uL (4.30-6.10); WHITE BLOOD COUNT 11.6 10^3/uL (4.0-10.0)
[2022-11-16] MEDS: MULTIVITAMINS/MINERALS THERAP 1 TAB PO SCH (08:26)
[2022-11-16] MEDS: FOLIC ACID 1MG TAB PO SCH (08:26)
[2022-11-16] MEDS: THIAMINE 100 MG TAB PO SCH ×2 (08:26→20:31)
[2022-11-16 08:57] LABS: BILIRUBIN,DIRECT 0.2 MG/DL (<0.4); BILIRUBIN,TOTAL 0.7 MG/DL (0.3-1.2); TOTAL PROTEIN 7.2 G/DL (5.7-8.2)
[2022-11-16] MEDS: PALIPERIDONE 6MG ER TAB (INVEGA) PO SCH (12:11)
[2022-11-16 15:00] VITALS: BP 139/74
[2022-11-16 16:55] VITALS: BP 139/74
[2022-11-16] MEDS: traZODone 50 MG TAB PO PRN (20:31)
[2022-11-16] MEDS: DIVALPROEX 500MG *ER* TAB PO SCH (20:31)
[2022-11-16 22:35] VITALS: BP 160/88
[2022-11-17 06:58] LABS: CHOLESTEROL RISK RATIO 4.64 (<5); HDL CHOLESTEROL 37.5 MG/DL (>40); LDL CHOLESTEROL 113.3 MG/DL (<100); NON-HDL-C 136.5 MG/DL
[2022-11-17 07:00] VITALS: BP 136/87
[2022-11-17 07:01] VITALS: BP 136/87
[2022-11-17] MEDS: MULTIVITAMINS/MINERALS THERAP 1 TAB PO SCH (08:11)
[2022-11-17] MEDS: THIAMINE 100 MG TAB PO SCH ×2 (08:11→20:05)
[2022-11-17] MEDS: FOLIC ACID 1MG TAB PO SCH (08:11)
[2022-11-17] MEDS: PALIPERIDONE 6MG ER TAB (INVEGA) PO SCH (08:11)
[2022-11-17] MEDS ORDERED: PALIPERIDONE PAL 234MG/1.5ML INJ (INVEGA)(FREE PSY INPT ONLY) IM ONE (11:00)
[2022-11-17] MEDS: OMEGA-3 1000MG CAPSULE PO SCH ×2 (11:26→20:05)
[2022-11-17 15:00] VITALS: BP 144/85
[2022-11-17 18:04] VITALS: BP 149/85
[2022-11-17] MEDS: DIVALPROEX 500MG *ER* TAB PO SCH (20:06)
[2022-11-17] MEDS: traZODone 50 MG TAB PO PRN (21:20)
[2022-11-18 06:21] VITALS: BP 150/80
[2022-11-18] MEDS: MULTIVITAMINS/MINERALS THERAP 1 TAB PO SCH (08:07)
[2022-11-18] MEDS: OMEGA-3 1000MG CAPSULE PO SCH ×2 (08:07→20:30)
[2022-11-18] MEDS: FOLIC ACID 1MG TAB PO SCH (08:07)
[2022-11-18] MEDS ORDERED: QUEtiapine FUMARATE 25 MG TAB PO PRN (08:20)
[2022-11-18] MEDS: PALIPERIDONE 6MG ER TAB (INVEGA) PO SCH (09:50)
[2022-11-18 18:59] VITALS: BP 150/85
[2022-11-18] MEDS: DIVALPROEX 250MG *ER* TAB PO SCH (20:30)
[2022-11-18] MEDS: DIVALPROEX 500MG *ER* TAB PO SCH (20:30)
[2022-11-18] MEDS ORDERED: DIVALPROEX 500MG *ER* TAB PO SCH (21:00)
[2022-11-18] MEDS: traZODone 50 MG TAB PO PRN (22:18)
[2022-11-19 06:15] VITALS: BP 130/75
[2022-11-19] MEDS: OMEGA-3 1000MG CAPSULE PO SCH ×2 (08:44→21:07)
[2022-11-19] MEDS: MULTIVITAMINS/MINERALS THERAP 1 TAB PO SCH (08:44)
[2022-11-19] MEDS: FOLIC ACID 1MG TAB PO SCH (08:44)
[2022-11-19] MEDS: PALIPERIDONE 6MG ER TAB (INVEGA) PO SCH (08:44)
[2022-11-19 16:17] VITALS: BP 134/70
[2022-11-19] MEDS: DIVALPROEX 250MG *ER* TAB PO SCH (21:07)
[2022-11-19] MEDS: DIVALPROEX 500MG *ER* TAB PO SCH (21:08)
[2022-11-20] MEDS: PALIPERIDONE 6MG ER TAB (INVEGA) PO SCH (08:14)
[2022-11-20] MEDS: FOLIC ACID 1MG TAB PO SCH (08:14)
[2022-11-20] MEDS: OMEGA-3 1000MG CAPSULE PO SCH ×2 (08:14→20:32)
[2022-11-20] MEDS: MULTIVITAMINS/MINERALS THERAP 1 TAB PO SCH (08:14)
[2022-11-20] MEDS ORDERED: PALIPERIDONE PAL 156MG/1ML INJ(INVEGA)(FREE PSY INPT ONLY) IM SCH (09:00)
[2022-11-20 16:35] VITALS: BP 123/80
[2022-11-20] MEDS: DIVALPROEX 500MG *ER* TAB PO SCH (20:32)
[2022-11-20] MEDS: DIVALPROEX 250MG *ER* TAB PO SCH (20:32)
[2022-11-21 07:00] VITALS: BP 155/83
[2022-11-21] MEDS: OMEGA-3 1000MG CAPSULE PO SCH ×2 (08:48→20:42)
[2022-11-21] MEDS: PALIPERIDONE 6MG ER TAB (INVEGA) PO SCH (08:48)
[2022-11-21] MEDS: FOLIC ACID 1MG TAB PO SCH (08:48)
[2022-11-21] MEDS: MULTIVITAMINS/MINERALS THERAP 1 TAB PO SCH (08:48)
[2022-11-21 18:49] VITALS: BP 158/90
[2022-11-21] MEDS: DIVALPROEX 500MG *ER* TAB PO SCH (20:42)
[2022-11-21] MEDS: DIVALPROEX 250MG *ER* TAB PO SCH (20:42)
[2022-11-22 05:49] VITALS: BP 138/84
[2022-11-22] MEDS: MULTIVITAMINS/MINERALS THERAP 1 TAB PO SCH (08:09)
[2022-11-22] MEDS: PALIPERIDONE 6MG ER TAB (INVEGA) PO SCH (08:09)
[2022-11-22] MEDS: FOLIC ACID 1MG TAB PO SCH (08:09)
[2022-11-22] MEDS: OMEGA-3 1000MG CAPSULE PO SCH ×2 (08:09→20:21)
[2022-11-22 18:44] VITALS: BP 149/79
[2022-11-22] MEDS: DIVALPROEX 250MG *ER* TAB PO SCH (20:22)
[2022-11-22] MEDS: QUEtiapine FUMARATE 25 MG TAB PO SCH (20:22)
[2022-11-22] MEDS: DIVALPROEX 500MG *ER* TAB PO SCH (20:22)
[2022-11-22] MEDS: traZODone 50 MG TAB PO PRN (20:59)
[2022-11-23 06:16] VITALS: BP 135/89
[2022-11-23] MEDS: FOLIC ACID 1MG TAB PO SCH (09:23)
[2022-11-23] MEDS: MULTIVITAMINS/MINERALS THERAP 1 TAB PO SCH (09:23)
[2022-11-23] MEDS: PALIPERIDONE 6MG ER TAB (INVEGA) PO SCH (09:23)
[2022-11-23] MEDS: OMEGA-3 1000MG CAPSULE PO SCH ×2 (09:23→22:12)
[2022-11-23] MEDS ORDERED: chlorproMAZINE INJ 50MG/2ML AMP IM STA (09:51)
[2022-11-23 18:57] VITALS: BP 156/77
[2022-11-23] MEDS: QUEtiapine FUMARATE 25 MG TAB PO SCH (22:12)
[2022-11-23] MEDS: DIVALPROEX 500MG *ER* TAB PO SCH (22:12)
[2022-11-23] MEDS: DIVALPROEX 250MG *ER* TAB PO SCH (22:12)
[2022-11-24 06:31] VITALS: BP 147/77
[2022-11-24] MEDS: PALIPERIDONE 3MG ER TAB (INVEGA) PO SCH (09:05)
[2022-11-24] MEDS: OMEGA-3 1000MG CAPSULE PO SCH ×2 (09:05→20:41)
[2022-11-24] MEDS: MULTIVITAMINS/MINERALS THERAP 1 TAB PO SCH (09:06)
[2022-11-24] MEDS: FOLIC ACID 1MG TAB PO SCH (09:06)
[2022-11-24 17:52] VITALS: BP 120/72
[2022-11-24] MEDS: DIVALPROEX 500MG *ER* TAB PO SCH (20:41)
[2022-11-24] MEDS: QUEtiapine FUMARATE 25 MG TAB PO SCH (20:41)
[2022-11-24] MEDS: DIVALPROEX 250MG *ER* TAB PO SCH (20:41)
[2022-11-24] MEDS ORDERED: LITHIUM CARBONATE 300 MG CAP PO SCH (21:00)
[2022-11-24] MEDS: traZODone 50 MG TAB PO PRN (21:21)
[2022-11-25 06:51] VITALS: BP 154/81
[2022-11-25] MEDS: OMEGA-3 1000MG CAPSULE PO SCH ×2 (08:59→20:08)
[2022-11-25] MEDS: PALIPERIDONE 3MG ER TAB (INVEGA) PO SCH (08:59)
[2022-11-25] MEDS: FOLIC ACID 1MG TAB PO SCH (09:00)
[2022-11-25] MEDS: MULTIVITAMINS/MINERALS THERAP 1 TAB PO SCH (09:04)
[2022-11-25 13:50] LABS: BASO % 0.4 % (0.0-1.0); EOS # 0.1 10^3/uL (0.0-0.5); EOS % 1.3 % (0.0-3.0); HEMATOCRIT 45.6 % (42.0-52.0); HEMOGLOBIN 15.2 g/dl (13.5-17.5); LYMPH # 3.4 10^3/uL (1.5-5.0); LYMPH % 35.1 % (24.0-44.0); MEAN CORPUSCULAR HEMOGLOBIN 32.3 pg (27.0-33.0); MEAN CORPUSCULAR HGB CONC 33.3 g/dl (32.0-36.5); MONO # 0.8 10^3/uL (0.0-0.8); MONO % 8.3 % (2.0-8.0); NEUTROPHILS # 5.2 10^3/uL (1.5-8.5); NEUTROPHILS % 54.6 % (36.0-66.0); PLATELET COUNT, AUTOMATED 284 10^3/uL (150-450); WHITE BLOOD COUNT 9.6 10^3/uL (4.0-10.0)
[2022-11-25] MEDS: LITHIUM CARBONATE 300 MG CAP PO SCH ×2 (14:28→20:08)
[2022-11-25] MEDS: diphenhydrAMINE CREAM 30GM TOP PRN (19:54)
[2022-11-25] MEDS: DIVALPROEX 500MG *ER* TAB PO SCH (20:07)
[2022-11-25] MEDS: DIVALPROEX 250MG *ER* TAB PO SCH (20:08)
[2022-11-25] MEDS: QUEtiapine FUMARATE 25 MG TAB PO SCH (20:08)
[2022-11-26 07:02] VITALS: BP 139/86
[2022-11-26] MEDS: OMEGA-3 1000MG CAPSULE PO SCH ×2 (08:43→20:20)
[2022-11-26] MEDS: PALIPERIDONE 3MG ER TAB (INVEGA) PO SCH (08:43)
[2022-11-26] MEDS: LITHIUM CARBONATE 300 MG CAP PO SCH ×2 (08:43→20:21)
[2022-11-26] MEDS: FOLIC ACID 1MG TAB PO SCH (08:43)
[2022-11-26] MEDS: MULTIVITAMINS/MINERALS THERAP 1 TAB PO SCH (08:43)
[2022-11-26] MEDS: diphenhydrAMINE CREAM 30GM TOP PRN (19:15)
[2022-11-26] MEDS: DIVALPROEX 250MG *ER* TAB PO SCH (20:20)
[2022-11-26] MEDS: QUEtiapine FUMARATE 25 MG TAB PO SCH (20:21)
[2022-11-26] MEDS: DIVALPROEX 500MG *ER* TAB PO SCH (20:21)
[2022-11-27 06:00] VITALS: BP 139/77
[2022-11-27] MEDS: OMEGA-3 1000MG CAPSULE PO SCH ×2 (08:34→20:18)
[2022-11-27] MEDS: MULTIVITAMINS/MINERALS THERAP 1 TAB PO SCH (08:34)
[2022-11-27] MEDS: PALIPERIDONE 3MG ER TAB (INVEGA) PO SCH (08:34)
[2022-11-27] MEDS: LITHIUM CARBONATE 300 MG CAP PO SCH ×2 (08:35→20:17)
[2022-11-27] MEDS: FOLIC ACID 1MG TAB PO SCH (08:35)
[2022-11-27 18:00] VITALS: BP 148/90
[2022-11-27] MEDS: QUEtiapine FUMARATE 25 MG TAB PO SCH (20:17)
[2022-11-27] MEDS: DIVALPROEX 250MG *ER* TAB PO SCH (20:18)
[2022-11-27] MEDS: DIVALPROEX 500MG *ER* TAB PO SCH (20:18)
[2022-11-28 06:47] VITALS: BP 118/77
[2022-11-28] MEDS: MULTIVITAMINS/MINERALS THERAP 1 TAB PO SCH (08:56)
[2022-11-28] MEDS: FOLIC ACID 1MG TAB PO SCH (08:57)
[2022-11-28] MEDS: LITHIUM CARBONATE 300 MG CAP PO SCH ×2 (08:57→19:57)
[2022-11-28] MEDS: OMEGA-3 1000MG CAPSULE PO SCH ×2 (08:57→19:57)
[2022-11-28] MEDS: PALIPERIDONE 3MG ER TAB (INVEGA) PO SCH (08:57)
[2022-11-28 18:49] VITALS: BP 142/90
[2022-11-28] MEDS: DIVALPROEX 250MG *ER* TAB PO SCH (19:56)
[2022-11-28] MEDS: DIVALPROEX 500MG *ER* TAB PO SCH (19:56)
[2022-11-28] MEDS: QUEtiapine FUMARATE 25 MG TAB PO SCH (19:57)
[2022-11-29 06:47] VITALS: BP 138/71
[2022-11-29] MEDS ORDERED: HALO5TAB33 PO (08:24)
[2022-11-29] MEDS ORDERED: LITH300C PO (08:24)
[2022-11-29] MEDS ORDERED: INVE156I IM (08:24)
[2022-11-29] MEDS ORDERED: FISH1CAP26 PO (08:24)
[2022-11-29] MEDS ORDERED: DEPA250T2 PO (08:24)
[2022-11-29] MEDS ORDERED: DEPA500T2 PO (08:24)
[2022-11-29] MEDS ORDERED: INVE9TAB PO (08:24)
[2022-11-29] MEDS ORDERED: QUET1TAB17 PO (08:24)
[2022-11-29] MEDS: LITHIUM CARBONATE 300 MG CAP PO SCH (09:22)
[2022-11-29] MEDS: PALIPERIDONE 3MG ER TAB (INVEGA) PO SCH (09:22)
[2022-11-29] MEDS: MULTIVITAMINS/MINERALS THERAP 1 TAB PO SCH (09:23)
[2022-11-29] MEDS: OMEGA-3 1000MG CAPSULE PO SCH (09:23)
[2022-11-29] MEDS: FOLIC ACID 1MG TAB PO SCH (09:24)
== END 2022-11-29 13:14 | disposition home or self-care (01) | DRG 753 ==
LOC: M ED 08:04 → M ED INP 13:55 → M PSY 21:25
PROVIDERS: ADMIT Student in an Organized Health Care Education/Training Program; ATTEND Student in an Organized Health Care Education/Training Program
DX: F31.10 Bipolar disorder, current episode manic without psychotic features, unspecified (principal); F12.10 Cannabis abuse, uncomplicated; F17.200 Nicotine dependence, unspecified, uncomplicated; F10.90 Alcohol use, unspecified, uncomplicated; R74.01 Elevation of levels of liver transaminase levels; Z20.822 Contact with and (suspected) exposure to COVID-19; Z78.1 Physical restraint status

== ENCOUNTER 2023-10-01 00:19 | Inpatient (IN) | payer OTHER ==
[~2023-10-01] VITALS: Ht 172.7 cm; Wt 68.0 kg
[~2023-10-01 00:19] MED LIST changes: +FISH1CAP26 PO; +HALO5TAB33 PO; +INVE156I IM; +INVE9TAB PO; +LITH300C PO; +OLAN20TA14 PO; +QUET1TAB17 PO
[2023-10-01] MEDS ORDERED: ARIP10TA32 PO (00:46)
[2023-10-01] MEDS ORDERED: HOME MED LIST COMPLETE! XX SCH (00:55)
[2023-10-01 01:00] LABS: HEMATOCRIT 41.9 % (42.0-52.0); HEMOGLOBIN 14.2 g/dl (13.5-17.5); MEAN CORPUSCULAR HEMOGLOBIN 32.2 pg (27.0-33.0); MEAN CORPUSCULAR HGB CONC 33.9 g/dl (32.0-36.5); PLATELET COUNT, AUTOMATED 328 10^3/uL (150-450); RED BLOOD COUNT 4.41 10^6/uL (4.30-6.10); WHITE BLOOD COUNT 13.6 10^3/uL (4.0-10.0)
[2023-10-01 01:20] LABS: ETHYL ALCOHOL (ETHANOL) < 0.003 % (0.000-0.010)
[2023-10-01 01:22] LABS: ALBUMIN 4.1 G/DL (3.2-5.2); ALKALINE PHOSPHATASE 68 U/L (46-116); ALT/SGPT 44 U/L (7.0-40); AST/SGOT 28 U/L (<34); BILIRUBIN,DIRECT < 0.1 MG/DL (<0.4); BILIRUBIN,TOTAL 0.3 MG/DL (0.3-1.2); BLOOD UREA NITROGEN 12 MG/DL (9-23); CALCIUM LEVEL 9.7 MG/DL (8.5-10.1); CARBON DIOXIDE LEVEL 29 MMOL/L (20-31); CHLORIDE LEVEL 103 MMOL/L (98-107); CREATININE FOR GFR 0.77 MG/DL (0.70-1.30); GLOMERULAR FILTRATION RATE > 60.0 (>60); GLUCOSE, FASTING 106 MG/DL (60-100); POTASSIUM SERUM 3.4 MMOL/L (3.5-5.1); SALICYLATE LEVEL < 3.0 MG/DL (<30); SODIUM LEVEL 138 MMOL/L (136-145); TOTAL PROTEIN 7.3 G/DL (5.7-8.2)
[2023-10-01 01:24] LABS: THYROID STIMULATING HORMONE 2.677 uIU/ML (0.55-4.78)
[2023-10-01 01:30] LABS: BARBITURATES URINE NEGATIVE (NEGATIVE); COCAINE METABOLITE URINE NEGATIVE (NEGATIVE)
[2023-10-01 01:31] LABS: AMPHETAMINES LEVEL URINE NEGATIVE (NEGATIVE); BENZODIAZEPINES URINE NEGATIVE (NEGATIVE); METHADONE URINE NEGATIVE (NEGATIVE); OPIATES URINE NEGATIVE (NEGATIVE); PHENCYCLIDINE URINE NEGATIVE (NEGATIVE)
[2023-10-01 01:32] LABS: CANNABINOIDS URINE POSITIVE (NEGATIVE)
[2023-10-01] MEDS: OLANZapine ORAL DISINTEGRATING TAB 5MG PO ONE (03:03)
[2023-10-01] MEDS ORDERED: LORazepam 1 MG TAB PO PRN (09:10)
[2023-10-01] MEDS ORDERED: MOM 30ML SUSPENSION UDC PO PRN (09:10)
[2023-10-01] MEDS ORDERED: MAALOX 30 ML SUSP *UDC PO PRN (09:10)
[2023-10-01] MEDS ORDERED: diphenhydrAMINE 25MG CAP PO PRN (09:10)
[2023-10-01] MEDS ORDERED: OLANZapine 5 MG TAB PO PRN (09:10)
[2023-10-01] MEDS ORDERED: ACETAMINOPHEN TAB 650MG DOSE (2X325MG) PO PRN (09:10)
[2023-10-01 11:23] VITALS: BP 123/77; TEMP 97.2; O2SAT 97
[2023-10-01] MEDS: IBUPROFEN 400MG TAB PO PRN (18:01)
[2023-10-01] MEDS: traZODone 50 MG TAB PO PRN (21:45)
[2023-10-02 06:37] VITALS: BP 132/72; TEMP 97.8; O2SAT 98
[2023-10-02 16:22] VITALS: BP 124/77; TEMP 97.9; O2SAT 98
[2023-10-02] MEDS: PALIPERIDONE 6MG ER TAB (INVEGA) PO SCH (20:24)
[2023-10-03 06:36] VITALS: BP 125/67; TEMP 97.5; O2SAT 98
[2023-10-03 06:49] LABS: HEMOGLOBIN A1c 5.1 % (4.0-6.0)
[2023-10-03 07:01] LABS: CHOLESTEROL RISK RATIO 4.17 (<5); HDL CHOLESTEROL 50.1 MG/DL (>40); LDL CHOLESTEROL 141.7 MG/DL (<100); NON-HDL-C 158.9 MG/DL
[2023-10-03] MEDS: PALIPERIDONE PAL 234MG/1.5ML INJ (INVEGA)(FREE PSY INPT ONLY) IM ONE (10:00)
[2023-10-03 17:41] VITALS: BP 136/88; TEMP 97.4
[2023-10-04 06:25] VITALS: BP 132/74; TEMP 98.2; O2SAT 98
[2023-10-04 17:33] VITALS: BP 146/65; TEMP 98.2; O2SAT 98
[2023-10-04] MEDS: NICOTINE 21MG/24HR 1 EA TRANSDERMAL TD SCH (17:43)
[2023-10-05 06:34] VITALS: BP 125/61; TEMP 97.2; O2SAT 96
[2023-10-05 17:06] VITALS: BP 147/70; TEMP 98.1
[2023-10-06 06:26] VITALS: BP 123/65; TEMP 97.3; O2SAT 98
[2023-10-06] MEDS ORDERED: PALIPERIDONE PAL 156MG/1ML INJ(INVEGA)(FREE PSY INPT ONLY) IM ONE (08:10)
[2023-10-06] MEDS ORDERED: INVE234I IM (09:42)
[2023-10-06] MEDS ORDERED: PALI1TAB3 PO (09:42)
[2023-10-06] MEDS ORDERED: TRAZ-252 PO (09:42)
[2023-10-06] MEDS: PALIPERIDONE PAL 156MG/1ML INJ(INVEGA)(FREE PSY INPT ONLY) IM ONE (11:06)
== END 2023-10-06 11:37 | disposition home or self-care (01) | DRG 753 ==
LOC: M ED 00:19 → M ED INP 09:07 → M PSY 11:13
PROVIDERS: ADMIT Student in an Organized Health Care Education/Training Program; ATTEND Student in an Organized Health Care Education/Training Program
DX: F31.10 Bipolar disorder, current episode manic without psychotic features, unspecified (principal); F12.90 Cannabis use, unspecified, uncomplicated; F17.210 Nicotine dependence, cigarettes, uncomplicated; Z81.1 Family history of alcohol abuse and dependence; Z62.810 Personal history of physical and sexual abuse in childhood; Z79.899 Other long term (current) drug therapy; Z91.018 Allergy to other foods; Z11.52 Encounter for screening for COVID-19

== ENCOUNTER 2024-11-20 18:57 | Emergency (ER) | payer MEDICAID, OTHER ==
[~2024-11-20] VITALS: Ht 172.7 cm; Wt 70.1 kg
[~2024-11-20 18:57] MED LIST changes: +ARIP10TA63 PO; +INVE234I IM; -OLAN20TA14 PO; +OLAN20TA53 PO; +PALI1TAB3 PO; -RISP-10 PO; +RISP3TAB77 PO; +TRAZ-252 PO
[2024-11-21 00:26] VITALS: BP 141/65; TEMP 97.6; O2SAT 98
== END 2024-11-21 00:29 | disposition home or self-care (01) ==
LOC: M ED 18:57
DX: F43.0 Acute stress reaction (principal); Z59.00 Homelessness unspecified; F31.9 Bipolar disorder, unspecified; F20.9 Schizophrenia, unspecified; F17.210 Nicotine dependence, cigarettes, uncomplicated

== ENCOUNTER 2025-03-06 13:03 | Emergency (ER) | payer OTHER ==
[~2025-03-06] VITALS: Ht 171.4 cm; Wt 64.5 kg
[~2025-03-06 13:03] MED LIST changes: -ABIL400I IM; +ARIP400S IM; +DEPA250T PO; -DEPA250T2 PO; +DICL1PAT6 TOP
[2025-03-06] MEDS ORDERED: BACI500O8 TOP (14:49)
[2025-03-06 15:06] VITALS: BP 117/79; TEMP 96.7; O2SAT 100
== END 2025-03-06 15:08 | disposition home or self-care (01) ==
LOC: M ED 13:03
DX: T23.222A Burn of second degree of single left finger (nail) except thumb, initial encounter (principal); T31.0 Burns involving less than 10% of body surface; X08.8XXA Exposure to other specified smoke, fire and flames, initial encounter; Y92.9 Unspecified place or not applicable; Y93.9 Activity, unspecified; Y99.9 Unspecified external cause status; F17.200 Nicotine dependence, unspecified, uncomplicated; F17.290 Nicotine dependence, other tobacco product, uncomplicated; F12.10 Cannabis abuse, uncomplicated; Z79.899 Other long term (current) drug therapy; Z91.018 Allergy to other foods

== ENCOUNTER 2025-03-07 19:23 | Emergency (ER) | payer OTHER ==
[~2025-03-07 19:23] MED LIST changes: +BACI500O8 TOP
[2025-03-07 21:04] VITALS: TEMP 97.6
[2025-03-07] MEDS: DERMABOND TOPICAL SKIN ADHESIVE TOP ONE (21:07)
[2025-03-07] MEDS: TETANUS/DIPHTH/ACEL. PERTUSSIS 0.5 ML SYR IM ONE (21:07)
[2025-03-07] MEDS: FLUORESCEIN OPHTH 1 MG STRIP OD ONE (21:07)
[2025-03-07 22:00] VITALS: BP 117/75; O2SAT 98
== END 2025-03-07 22:29 | disposition home or self-care (01) ==
LOC: M ED 19:23
DX: S01.81XA Laceration without foreign body of other part of head, initial encounter (principal); Z23 Encounter for immunization; Y04.8XXA Assault by other bodily force, initial encounter; Y92.009 Unspecified place in unspecified non-institutional (private) residence as the place of occurrence of the external cause; Y93.89 Activity, other specified; Y99.9 Unspecified external cause status; F19.10 Other psychoactive substance abuse, uncomplicated; F17.200 Nicotine dependence, unspecified, uncomplicated